=== PATIENT | female | born 1950 | race Caucasian/White ===

== ENCOUNTER 2020-02-27 19:36 | Inpatient (IN) | payer MEDICARE, MEDICAID ==
[2020-02-27] MEDS ORDERED: Ondansetron 4 MG/2 ML SDV IVPUSH ONE (19:51)
--- NOTE | 2020-02-27 19:58 | EDM.PDOC ---
ED HPI GENERAL MEDICAL PROBLEM - General Chief Complaint: General Stated Complaint: WEAKNESS; N/V Time Seen by Provider: 02/27/20 20:15 Source of Information: Reports: Patient History Limitations: Reports: No Limitations - History of Present Illness INITIAL COMMENTS - FREE TEXT/NARRATIVE: Patient presented to the ED because of persistent nausea and vomiting for 2 days. She denies any abdominal pain,diarrhea,fever or chills. She is also concerned about her BP being elevated and took her daughter's losartan/HCTZ which aggravated her dehydration and weakness. She also c/o weakness and dizziness and fell on her buttock just prior to coming to the ED. She didn't sustain any injury after the fall except for a bruising on the left elbow. - Related Data Allergies Allergy/AdvReac Type Severity Reaction Status Date / Time iodine Allergy Hives Verified 06/10/14 15:30 Home Meds: Home Meds NK [No Known Home Meds] 06/10/14 [History] Past Medical History - Past Health History Medical/Surgical History: Denies Medical/Surgical History ED ROS GENERAL - Review of Systems Review Of Systems: See Below Constitutional: Reports: No Symptoms HEENT: Reports: No Symptoms Respiratory: Reports: No Symptoms Cardiovascular: Reports: No Symptoms Endocrine: Reports: No Symptoms GI/Abdominal: Reports: No Symptoms : Reports: No Symptoms Musculoskeletal: Reports: No Symptoms Skin: Reports: Bruising Neurological: Reports: Weakness Psychiatric: Reports: No Symptoms ED EXAM, GENERAL - Physical Exam Exam: See Below Exam Limited By: No Limitations General Appearance: Alert, No Apparent Distress Eye Exam: Bilateral Eye: PERRL Ears: Normal External Exam, Normal Canal Nose: Normal Inspection, Normal Mucosa, No Blood Throat/Mouth: Normal Inspection, Normal Lips, Normal Teeth, Normal Gums Head: Atraumatic, Normocephalic Neck: Normal Inspection, Supple, Non-Tender, Full Range of Motion Respiratory/Chest: No Respiratory Distress, Lungs Clear, Normal Breath Sounds Cardiovascular: Normal Peripheral Pulses, Regular Rate, Rhythm, No Edema, No Gallop GI/Abdominal: Normal Bowel Sounds, Soft, Non-Tender, No Organomegaly Back Exam: Normal Inspection, Full Range of Motion Extremities: Normal Inspection, Normal Range of Motion, Non-Tender Course - Vital Signs Text/Narrative:: Labs/EKG/CXR was discussed with patient and verbalized full understanding NS 1 L bolus Zofran 4 mg IV x1 Last Recorded V/S: Last Vital Signs Temp 36.3 C 02/27/20 20:09 Pulse 93 02/27/20 20:09 Resp 22 H 02/27/20 20:09 BP 174/83 H 02/27/20 20:09 Pulse Ox 97 02/27/20 20:09 - Orders/Labs/Meds Orders: Active Orders 24 hr Category Date Time Status Patient Status [ADT] Routine ADT 02/27/20 21:05 Ordered Cardiac Monitoring [RC] CONTINUOUS Care 02/27/20 21:09 Ordered EKG Documentation Completion [RC] ASDIRECTED Care 02/27/20 19:49 Active Height and Weight [RC] DAILY Care 02/27/20 21:04 Ordered Intake and Output [RC] QSHIFT Care 02/27/20 21:08 Ordered Oxygen Therapy [RC] PRN Care 02/27/20 21:05 Ordered Up With Assistance [RC] ASDIRECTED Care 02/27/20 21:04 Ordered VTE/DVT Education [RC] Per Unit Routine Care 02/27/20 21:05 Ordered Vital Signs [RC] Q4H Care 02/27/20 21:05 Ordered Regular Diet [DIET] Diet 02/28/20 Breakfast Ordered Chest 1V Frontal [CR] Stat Exams 02/27/20 20:05 Taken BASIC METABOLIC PANEL,BMP [CHEM] Routine Lab 02/27/20 21:04 Ordered CBC WITH AUTO DIFF [HEME] AM Lab 02/28/20 05:11 Ordered UA W/MICROSCOPIC [URIN] Stat Lab 02/27/20 19:47 Ordered Potassium Chloride [Klor-Con M20] Med 02/27/20 21:15 Ordered 40 meq PO Q2H Sodium Chloride 0.9% [Normal Saline] 1,000 ml Med 02/27/20 20:00 Active IV ASDIRECTED Sodium Chloride 0.9% [Saline Flush] Med 02/27/20 19:47 Active 10 ml FLUSH ASDIRECTED PRN Sodium Chloride 0.9% with KCl 20 mEq @ 125 mL/Hr (1000 Med 02/27/20 21:15 Ordered mL) NS + KCl 20mEq/L [Normal Saline with 20 mEq KCl] 1,000 ml IV ASDIRECTED Saline Lock Insert [OM.PC] Routine Oth 02/27/20 19:47 Ordered Resuscitation Status Routine Resus Stat 02/27/20 21:04 Ordered EKG 12 Lead [EK] Routine Ther 02/27/20 19:47 Ordered Medication Orders Sodium Chloride (Normal Saline) 1,000 mls @ 999 mls/hr IV ASDIRECTED MARY Last Admin: 02/27/20 20:07 Dose: 999 mls/hr Potassium Chloride/Sodium Chloride (Normal Saline With 20 Meq Kcl) 1,000 mls @ 125 mls/hr IV ASDIRECTED MARY Potassium Chloride (Klor-Con M20) 40 meq PO Q2H MARY Sodium Chloride (Saline Flush) 10 ml FLUSH ASDIRECTED PRN PRN Reason: Keep Vein Open Labs: Laboratory Tests 02/27/20 02/27/20 02/27/20 Range/Units 19:54 19:54 19:54 WBC 7.2 (4.5-12.0) X10-3/uL RBC 3.81 (3.23-5.20) x10(6)uL Hgb 11.6 (11.5-15.5) g/dL Hct 34.7 (30.0-51.3) % MCV 91.0 (80-96) fL MCH 30.4 (27.7-33.6) pg MCHC 33.4 (32.2-35.4) g/dL RDW 11.7 (11.5-15.5) % Plt Count 293 (125-369) X10(3)uL MPV 7.4 (7.4-10.4) fL Neut % (Auto) 80.1 (46-82) % Lymph % (Auto) 9.0 L (13-37) % [place] % (Auto) 7.4 (4-12) % Eos % (Auto) 0 L (1.0-5.0) % Baso % (Auto) 3 H (0-2) % Neut # (Auto) 5.9 (1.6-8.3) # Lymph # (Auto) 0.6 (0.6-5.0) # [place] # (Auto) 0.5 (0.0-1.3) # Eos # (Auto) 0.0 (0.0-0.8) # Baso # (Auto) 0.2 (0.0-0.2) # Sodium 103 L* (135-145) mmol/L Potassium 3.1 L (3.5-5.3) mmol/L Chloride 68 L* (100-110) mmol/L Carbon Dioxide 19 L (21-32) mmol/L BUN 9 (7-18) mg/dL Creatinine 0.9 (0.55-1.02) mg/dL Est Cr Clr Drug Dosing TNP Estimated GFR (MDRD) > 60 (>60) BUN/Creatinine Ratio 10.0 (9-20) Glucose 154 H (80-116) mg/dL Calcium 9.0 (8.6-10.2) mg/dL Total Bilirubin 0.9 (0.1-1.3) mg/dL AST 50 H (5-25) IU/L ALT 32 (12-36) U/L Alkaline Phosphatase 87 (56-112) IU/L Troponin I 18.1 (4.0-60.3) pg/mL Total Protein 7.9 (6.0-8.0) g/dL Albumin 3.7 (3.2-4.6) g/dL Globulin 4.2 g/dL Albumin/Globulin Ratio 0.9 Meds: Medications Generic Name Dose Route Start Last Admin Trade Name Freq PRN Reason Stop Dose Admin Sodium Chloride 1,000 mls @ 999 mls/hr 02/27/20 20:00 02/27/20 20:07 Normal Saline IV 999 mls/hr ASDIRECTED MARY Administration Potassium Chloride/Sodium Chloride 1,000 mls @ 125 mls/hr 02/27/20 21:15 Normal Saline With 20 Meq Kcl IV ASDIRECTED MARY Potassium Chloride 40 meq 02/27/20 21:15 Klor-Con M20 PO Q2H MARY Sodium Chloride 10 ml 02/27/20 19:47 Saline Flush FLUSH ASDIRECTED PRN Keep Vein Open Discontinued Medications Generic Name Dose Route Start Last Admin Trade Name Freq PRN Reason Stop Dose Admin Ondansetron HCl 4 mg 02/27/20 19:51 02/27/20 20:07 Zofran IVPUSH 02/27/20 19:52 4 mg ONETIME ONE Administration Departure - Departure Time of Disposition: 21:25 Disposition: Home, Self-Care 01 Condition: Good Clinical Impression: Dehydration, Hyponatremia, Hypokalemia, Weakness - Discharge Information Referrals: Deejay Thornton MD [Primary Care Provider] - Forms: ED Department Discharge Sepsis Event Note - Focused Exam Vital Signs: Vital Signs Temp Pulse Resp BP Pulse Ox 02/27/20 20:09 36.3 C 93 22 H 174/83 H 97 Date Exam was Performed: 02/27/20 Time Exam was Performed: 21:14 - My Orders Last 24 Hours: My Active Orders 02/27/20 19:47 UA W/MICROSCOPIC [URIN] Stat Sodium Chloride 0.9% [Saline Flush] 10 ml FLUSH ASDIRECTED PRN Saline Lock Insert [OM.PC] Routine EKG 12 Lead [EK] Routine 02/27/20 19:49 EKG Documentation Completion [RC] ASDIRECTED 02/27/20 20:00 Sodium Chloride 0.9% [Normal Saline] 1,000 ml IV ASDIRECTED 02/27/20 20:05 Chest 1V Frontal [CR] Stat 02/27/20 21:04 Height and Weight [RC] DAILY Up With Assistance [RC] ASDIRECTED BASIC METABOLIC PANEL,BMP [CHEM] Routine Resuscitation Status Routine 02/27/20 21:05 Patient Status [ADT] Routine Oxygen Therapy [RC] PRN VTE/DVT Education [RC] Per Unit Routine Vital Signs [RC] Q4H 02/27/20 21:08 Intake and Output [RC] QSHIFT 02/27/20 21:09 Cardiac Monitoring [RC] CONTINUOUS 02/27/20 21:15 Potassium Chloride [Klor-Con M20] 40 meq PO Q2H Sodium Chloride 0.9% with KCl 20 mEq @ 125 mL/Hr (1000 mL) NS + KCl 20mEq/L [ Normal Saline with 20 mEq KCl] 1,000 ml IV ASDIRECTED 02/28/20 05:11 CBC WITH AUTO DIFF [HEME] AM 02/28/20 Breakfast Regular Diet [DIET] - Assessment/Plan Last 24 Hours: My Active Orders 02/27/20 19:47 UA W/MICROSCOPIC [URIN] Stat Sodium Chloride 0.9% [Saline Flush] 10 ml FLUSH ASDIRECTED PRN Saline Lock Insert [OM.PC] Routine EKG 12 Lead [EK] Routine 02/27/20 19:49 EKG Documentation Completion [RC] ASDIRECTED 02/27/20 20:00 Sodium Chloride 0.9% [Normal Saline] 1,000 ml IV ASDIRECTED 02/27/20 20:05 Chest 1V Frontal [CR] Stat 02/27/20 21:04 Height and Weight [RC] DAILY Up With Assistance [RC] ASDIRECTED BASIC METABOLIC PANEL,BMP [CHEM] Routine Resuscitation Status Routine 02/27/20 21:05 Patient Status [ADT] Routine Oxygen Therapy [RC] PRN VTE/DVT Education [RC] Per Unit Routine Vital Signs [RC] Q4H 02/27/20 21:08 Intake and Output [RC] QSHIFT 02/27/20 21:09 Cardiac Monitoring [RC] CONTINUOUS 02/27/20 21:15 Potassium Chloride [Klor-Con M20] 40 meq PO Q2H Sodium Chloride 0.9% with KCl 20 mEq @ 125 mL/Hr (1000 mL) NS + KCl 20mEq/L [ Normal Saline with 20 mEq KCl] 1,000 ml IV ASDIRECTED 02/28/20 05:11 CBC WITH AUTO DIFF [HEME] AM 02/28/20 Breakfast Regular Diet [DIET]
[2020-02-27] MEDS ORDERED: Sodium Chloride 0.9% 1,000 ML IV SCH (20:00)
[2020-02-27] MEDS ORDERED: Potassium Chloride 20 MEQ Tab.ER PO ONE (21:30)
[2020-02-27] MEDS: NS + KCl 20mEq/L 1,000 ML IV SCH (21:42)
[2020-02-27] MEDS: Potassium Chloride 20 MEQ Tab.ER PO SCH (22:08)
[2020-02-27] MEDS ORDERED: Pneumococcal Polyvalent-23 Vaccine 0.5 ML SDV IM ONE (23:02)
[2020-02-28] MEDS: Potassium Chloride 20 MEQ Tab.ER PO SCH ×3 (00:10→04:17)
[2020-02-28] MEDS ORDERED: Ondansetron 4 MG/2 ML SDV ONE (00:31)
[2020-02-28] MEDS: Ondansetron 4 MG/2 ML SDV IVPUSH PRN ×2 (00:33→08:43)
[2020-02-28] MEDS ORDERED: Acetaminophen/HYDROcodone 325-5 MG Tab PO PRN (02:55)
[2020-02-28] MEDS ORDERED: Potassium Chloride 20 MEQ Tab.ER ONE (04:05)
[2020-02-28] MEDS: Acetaminophen/HYDROcodone 325-5 MG Tab PO PRN (04:18)
[2020-02-28] MEDS: NS + KCl 20mEq/L 1,000 ML IV SCH ×3 (05:48→22:29)
--- NOTE | 2020-02-28 09:20 | PCM.HP.2 ---
H&P History of Present Illness - General Date of Service: 02/28/20 Admit Problem/Dx: Admission Diagnosis/Problem Admission Diagnosis/Problem Nausea and vomiting Source of Information: Patient History Limitations: Reports: No Limitations - History of Present Illness Initial Comments - Free Text/Narative: Tenisha presented to the ED last night because of persistent nausea and vomiting for 2 days.Had a similar episode a few days ago. She denies any abdominal pain, diarrhea,fever or chills. She is also concerned about her BP being elevated and took her daughter's losartan/HCTZ which aggravated her dehydration and weakness. She also c/o weakness and dizziness and fell on her buttock just prior to coming to the ED.Her past record includes untreated HTN,diagnosed in 2014. She has had glaucoma,but no treatment due to transportation problems.She is therefore unable to see even shadows,for last month. 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 Cardiovascular History: Reports: Hypertension, SOB on Exertion Respiratory History: Reports: Other (See Below) Other Respiratory History: Patient believes she had Covid Spring 2019. Musculoskeletal History: Reports: Arthritis Neurological History: Reports: Vertigo Endocrine/Metabolic History: Reports: Obesity/BMI 30+ - Infectious Disease History Infectious Disease History: Reports: Measles, Mumps, Rubella Social & Family History - Family History Family Medical History: Noncontributory - Tobacco Use Smoking Status *Q: Former Smoker Years of Tobacco use: 50 Used Tobacco, but Quit: No Month/Year Tobacco Last Used: 11/2019 - Caffeine Use Caffeine Use: Reports: Tea - Recreational Drug Use Recreational Drug Use: Yes H&P Review of Systems - Review of Systems: Review Of Systems: Comprehensive ROS is negative, except as noted in HPI. Exam - Exam Exam: See Below - Vital Signs Vital Signs: Last Vital Signs Temp 96.8 F L 02/27/20 21:15 Pulse 87 02/28/20 04:10 Resp 18 06/06/20 04:10 BP 125/81 02/28/20 04:10 Pulse Ox 99 02/28/20 04:10 Weight: 91.852 kg - Exam General: Alert, Oriented, 4 HEENT: PERRLA, Hearing Intact, Mucosa Moist & [place], Nares Patent, Normal Nasal Septum, Posterior Pharynx Clear, Conjunctiva Clear, EOMI, EACs Clear, TMs Clear Neck: Supple, Trachea Midline, 2 Lungs: Clear to Auscultation, Normal Respiratory Effort Cardiovascular: Regular Rate, Regular Rhythm GI/Abdominal Exam: Normal Bowel Sounds, Soft, Non-Tender, No Organomegaly, No Distention, No Abnormal Bruit, No Mass, Pelvis Stable (Female) Exam: Deferred Rectal (Female) Exam: Deferred Back Exam: Normal Inspection, Full Range of Motion, NT Extremities: Normal Inspection, Normal Range of Motion, Non-Tender, No Pedal Edema, Normal Capillary Refill Skin: Warm, Dry, Intact Neurological: Cranial Nerves Intact, Reflexes Equal Bilateral Neuro Extensive - Mental Status: Alert, Oriented x3, Normal Mood/Affect, Normal Cognition Neuro Extensive - Motor, Sensory, Reflexes: CN II-XII Intact, Normal Gait, Normal Reflexes Psychiatric: Alert, Normal Affect, Normal Mood - Patient Data Lab Results Last 24 hrs: Laboratory Results - last 24 hr 02/27/20 02/27/20 02/27/20 Range/Units 19:41 19:54 19:54 WBC 7.2 (4.5-12.0) X10-3/uL RBC 3.81 (3.23-5.20) x10(6)uL Hgb 11.6 (11.5-15.5) g/dL Hct 34.7 (30.0-51.3) % MCV 91.0 (80-96) fL MCH 30.4 (27.7-33.6) pg MCHC 33.4 (32.2-35.4) g/dL RDW 11.7 (11.5-15.5) % Plt Count 293 (125-369) X10(3)uL MPV 7.4 (7.4-10.4) fL Neut % (Auto) 80.1 (46-82) % Lymph % (Auto) 9.0 L (13-37) % [place] % (Auto) 7.4 (4-12) % Eos % (Auto) 0 L (1.0-5.0) % Baso % (Auto) 3 H (0-2) % Neut # (Auto) 5.9 (1.6-8.3) # Lymph # (Auto) 0.6 (0.6-5.0) # [place] # (Auto) 0.5 (0.0-1.3) # Eos # (Auto) 0.0 (0.0-0.8) # Baso # (Auto) 0.2 (0.0-0.2) # Sodium 103 L* (135-145) mmol/L Potassium 3.1 L (3.5-5.3) mmol/L Chloride 68 L* (100-110) mmol/L Carbon Dioxide 19 L (21-32) mmol/L BUN 9 (7-18) mg/dL Creatinine 0.9 (0.55-1.02) mg/dL Est Cr Clr Drug Dosing TNP Estimated GFR (MDRD) > 60 (>60) BUN/Creatinine Ratio 10.0 (9-20) Glucose 154 H (80-116) mg/dL POC Glucose 138 H (80-116) mg/dL Calcium 9.0 (8.6-10.2) mg/dL Magnesium (1.8-2.5) mg/dL Total Bilirubin 0.9 (0.1-1.3) mg/dL AST 50 H (5-25) IU/L ALT 32 (12-36) U/L Alkaline Phosphatase 87 (56-112) IU/L Troponin I (4.0-60.3) pg/mL Total Protein 7.9 (6.0-8.0) g/dL Albumin 3.7 (3.2-4.6) g/dL Globulin 4.2 g/dL Albumin/Globulin Ratio 0.9 Urine Color (YELLOW) Urine Appearance (CLEAR) Urine pH (5.0-6.5) Ur Specific [place] (1.010-1.025) Urine Protein (NEGATIVE) mg/dL Urine Glucose (UA) (NORMAL) mg/dL Urine Ketones (NEGATIVE) mg/dL Urine Occult Blood (NEGATIVE) Urine Nitrite (NEGATIVE) Urine Bilirubin (NEGATIVE) Urine Urobilinogen (NEGATIVE) mg/dL Ur Leukocyte Esterase (NEGATIVE) Urine RBC (0-5) Urine WBC (0-5) Ur Squamous Epith Cells (NS,R,O) Urine Bacteria (NS) SARS Virus RNA (PCR) (NEGATIVE) 02/27/20 02/27/20 02/27/20 Range/Units 19:54 21:16 22:00 WBC (4.5-12.0) X10-3/uL RBC (3.23-5.20) x10(6)uL Hgb (11.5-15.5) g/dL Hct (30.0-51.3) % MCV (80-96) fL MCH (27.7-33.6) pg MCHC (32.2-35.4) g/dL RDW (11.5-15.5) % Plt Count (125-369) X10(3)uL MPV (7.4-10.4) fL Neut % (Auto) (46-82) % Lymph % (Auto) (13-37) % [place] % (Auto) (4-12) % Eos % (Auto) (1.0-5.0) % Baso % (Auto) (0-2) % Neut # (Auto) (1.6-8.3) # Lymph # (Auto) (0.6-5.0) # [place] # (Auto) (0.0-1.3) # Eos # (Auto) (0.0-0.8) # Baso # (Auto) (0.0-0.2) # Sodium (135-145) mmol/L Potassium (3.5-5.3) mmol/L Chloride (100-110) mmol/L Carbon Dioxide (21-32) mmol/L BUN (7-18) mg/dL Creatinine (0.55-1.02) mg/dL Est Cr Clr Drug Dosing Estimated GFR (MDRD) (>60) BUN/Creatinine Ratio (9-20) Glucose (80-116) mg/dL POC Glucose (80-116) mg/dL Calcium (8.6-10.2) mg/dL Magnesium (1.8-2.5) mg/dL Total Bilirubin (0.1-1.3) mg/dL AST (5-25) IU/L ALT (12-36) U/L Alkaline Phosphatase (56-112) IU/L Troponin I 18.1 (4.0-60.3) pg/mL Total Protein (6.0-8.0) g/dL Albumin (3.2-4.6) g/dL Globulin g/dL Albumin/Globulin Ratio Urine Color Yellow (YELLOW) Urine Appearance Clear (CLEAR) Urine pH 6.0 (5.0-6.5) Ur Specific [place] 1.010 (1.010-1.025) Urine Protein Negative (NEGATIVE) mg/dL Urine Glucose (UA) Normal (NORMAL) mg/dL Urine Ketones 50 H (NEGATIVE) mg/dL Urine Occult Blood Trace (NEGATIVE) Urine Nitrite Negative (NEGATIVE) Urine Bilirubin Negative (NEGATIVE) Urine Urobilinogen Normal (NEGATIVE) mg/dL Ur Leukocyte Esterase Negative (NEGATIVE) Urine RBC Not seen (0-5) Urine WBC 0-5 (0-5) Ur Squamous Epith Cells Few H (NS,R,O) Urine Bacteria Few H (NS) SARS Virus RNA (PCR) Negative (NEGATIVE) 02/28/20 02/28/20 Range/Units 05:55 05:55 WBC 6.3 (4.5-12.0) X10-3/uL RBC 3.29 (3.23-5.20) x10(6)uL Hgb 10.1 L (11.5-15.5) g/dL Hct 30.0 (30.0-51.3) % MCV 91.3 (80-96) fL MCH 30.7 (27.7-33.6) pg MCHC 33.6 (32.2-35.4) g/dL RDW 11.7 (11.5-15.5) % Plt Count 233 (125-369) X10(3)uL MPV 7.3 L (7.4-10.4) fL Neut % (Auto) 70.9 (46-82) % Lymph % (Auto) 13.7 (13-37) % [place] % (Auto) 14.9 H (4-12) % Eos % (Auto) 0 L (1.0-5.0) % Baso % (Auto) 0 (0-2) % Neut # (Auto) 4.5 (1.6-8.3) # Lymph # (Auto) 0.9 (0.6-5.0) # [place] # (Auto) 0.9 (0.0-1.3) # Eos # (Auto) 0.0 (0.0-0.8) # Baso # (Auto) 0.0 (0.0-0.2) # Sodium 110 L* (135-145) mmol/L Potassium 4.3 D (3.5-5.3) mmol/L Chloride 79 L* D (100-110) mmol/L Carbon Dioxide 22 (21-32) mmol/L BUN 7 (7-18) mg/dL Creatinine 0.9 (0.55-1.02) mg/dL Est Cr Clr Drug Dosing 41.78 Estimated GFR (MDRD) > 60 (>60) BUN/Creatinine Ratio 7.8 L (9-20) Glucose 85 (80-116) mg/dL POC Glucose (80-116) mg/dL Calcium 8.1 L (8.6-10.2) mg/dL Magnesium 0.9 L* (1.8-2.5) mg/dL Total Bilirubin (0.1-1.3) mg/dL AST (5-25) IU/L ALT (12-36) U/L Alkaline Phosphatase (56-112) IU/L Troponin I (4.0-60.3) pg/mL Total Protein (6.0-8.0) g/dL Albumin (3.2-4.6) g/dL Globulin g/dL Albumin/Globulin Ratio Urine Color (YELLOW) Urine Appearance (CLEAR) Urine pH (5.0-6.5) Ur Specific [place] (1.010-1.025) Urine Protein (NEGATIVE) mg/dL Urine Glucose (UA) (NORMAL) mg/dL Urine Ketones (NEGATIVE) mg/dL Urine Occult Blood (NEGATIVE) Urine Nitrite (NEGATIVE) Urine Bilirubin (NEGATIVE) Urine Urobilinogen (NEGATIVE) mg/dL Ur Leukocyte Esterase (NEGATIVE) Urine RBC (0-5) Urine WBC (0-5) Ur Squamous Epith Cells (NS,R,O) Urine Bacteria (NS) SARS Virus RNA (PCR) (NEGATIVE) Result Diagrams: 02/28/20 05:55 02/28/20 05:55 Sepsis Event Note - Evaluation Sepsis Screening Result: No Definite Risk - Focused Exam Vital Signs: Vital Signs Temp Pulse Resp BP Pulse Ox 02/28/20 04:10 87 18 125/81 99 02/28/20 00:40 97 18 142/80 H 96 02/27/20 21:15 96.8 F L 98 20 171/94 H 98 Date Exam was Performed: 02/28/20 Time Exam was Performed: 09:14 - Problem List (1) Hyponatremia syndrome SNOMED Code(s): 2375277 ICD Code: E87.1 - HYPO-OSMOLALITY AND HYPONATREMIA Status: Acute Current Visit: Yes (2) HTN (hypertension) SNOMED Code(s): 56240625 ICD Code: I10 - ESSENTIAL (PRIMARY) HYPERTENSION Status: Acute Current Visit: Yes Qualifiers: Hypertension type: essential hypertension Qualified Code(s): I10 - Essential (primary) hypertension (3) Vomiting SNOMED Code(s): 867834639 ICD Code: R11.10 - VOMITING, UNSPECIFIED Status: Acute Current Visit: Yes (4) Weakness SNOMED Code(s): 82982414 ICD Code: R53.1 - WEAKNESS Status: Acute Current Visit: Yes (5) Hypomagnesemia SNOMED Code(s): 431769901 ICD Code: E83.42 - HYPOMAGNESEMIA Status: Acute Current Visit: Yes Problem List Initiated/Reviewed/Updated: Yes Orders Last 24hrs: Active Orders 24 hr Category Date Time Status Patient Status [ADT] Routine ADT 02/27/20 21:05 Active Cardiac Monitoring [RC] 00,08,16 Care 02/27/20 21:09 Active Height and Weight [RC] 06 Care 02/27/20 21:04 Active Intake and Output [RC] 06,14,22 Care 02/27/20 21:08 Active Oxygen Therapy [RC] .PRN Care 02/27/20 21:05 Active Up With Assistance [RC] .PRN Care 02/27/20 21:04 Active Vital Signs [RC] 00,04,08,12,16,20 Care 02/27/20 21:05 Active Fluid Restriction [DIET] Diet 02/28/20 Breakfast Active Regular Diet [DIET] Diet 02/28/20 Breakfast Active Chest 1V Frontal [CR] Stat Exams 02/27/20 20:05 Taken COMPREHENSIVE METABOLIC PN,CMP [CHEM] AM Lab 02/29/20 05:11 Ordered COVID-19 SARS COV-2 AB, IGG Routine Lab 02/28/20 09:12 Ordered COVID-19 SARS COV-2 AB, IGM Routine Lab 02/28/20 09:12 Ordered MAGNESIUM [CHEM] AM Lab 02/29/20 05:11 Ordered OSMOLALITY Stat Lab 02/28/20 09:12 Ordered OSMOLALITY, URINE Stat Lab 02/28/20 09:12 Ordered SODIUM,URINE RANDOM [URCHEM] Routine Lab 02/28/20 09:12 Ordered Acetaminophen/HYDROcodone [[place] 325-5 MG] Med 02/28/20 02:55 Active 1 tab PO Q4H PRN Acetaminophen/HYDROcodone [[place] 325-5 MG] Med 02/28/20 02:55 Active 2 tab PO Q4H PRN Magnesium Oxide Med 02/28/20 09:15 Ordered 400 mg PO BID NS + KCl 20mEq/L [Normal Saline with 20 mEq KCl] 1,000 Med 02/27/20 21:15 Active ml IV ASDIRECTED Ondansetron [Zofran] Med 02/28/20 00:20 Active 4 mg IVPUSH Q4H PRN Sodium Chloride 0.9% [Normal Saline] 1,000 ml Med 02/27/20 20:00 Active IV ASDIRECTED Sodium Chloride 0.9% [Saline Flush] Med 02/27/20 19:47 Active 10 ml FLUSH ASDIRECTED PRN Saline Lock Insert [OM.PC] Routine Oth 02/27/20 19:47 Ordered Resuscitation Status Routine Resus Stat 02/27/20 21:04 Ordered EKG 12 Lead [EK] Routine Ther 02/27/20 19:47 Ordered Medication Orders Hydrocodone Bitart/Acetaminophen ([place] 325-5 Mg) 1 tab PO Q4H PRN PRN Reason: Pain Hydrocodone Bitart/Acetaminophen ([place] 325-5 Mg) 2 tab PO Q4H PRN PRN Reason: Pain Last Admin: 02/28/20 04:18 Dose: 2 tab Sodium Chloride (Normal Saline) 1,000 mls @ 999 mls/hr IV ASDIRECTED MARY Last Admin: 02/27/20 20:07 Dose: 999 mls/hr Potassium Chloride/Sodium Chloride (Normal Saline With 20 Meq Kcl) 1,000 mls @ 125 mls/hr IV ASDIRECTED MARY Last Admin: 02/28/20 05:48 Dose: 125 mls/hr Admin: 02/27/20 21:42 Dose: 125 mls/hr Magnesium Oxide (Magnesium Oxide) 400 mg PO BID MARY Ondansetron HCl (Zofran) 4 mg IVPUSH Q4H PRN PRN Reason: Nausea Last Admin: 02/28/20 08:43 Dose: 4 mg Admin: 02/28/20 00:33 Dose: 4 mg Sodium Chloride (Saline Flush) 10 ml FLUSH ASDIRECTED PRN PRN Reason: Keep Vein Open Assessment/Plan Comment:: Sodium on admission was 103, up to 110 this morning. I'll continue with isotonic saline replacement, and restrict fluids to 1000 MLS per day. Use when necessary Zofran for vomiting.Replace magnesium. Recommend urine sodium, serum osmolarity and urine osmolarity. She also wants to be tested for covid antibodies. Admit to inpatient since she needs further fluid replacement, probably consider rehabilitation as well,after.
[2020-02-28] MEDS: Magnesium Oxide 400 MG Tab PO SCH ×2 (10:29→20:18)
[2020-02-28] MEDS: Sodium Chloride 0.9% 10 ML Syringe FLUSH PRN (22:39)
[2020-02-29] MEDS: Acetaminophen/HYDROcodone 325-5 MG Tab PO PRN ×3 (04:58→13:13)
[2020-02-29] MEDS: NS + KCl 20mEq/L 1,000 ML IV SCH (06:25)
[2020-02-29] MEDS: Magnesium Oxide 400 MG Tab PO SCH ×2 (08:04→20:53)
--- NOTE | 2020-02-29 09:16 | PCM.PN ---
- General Info Date of Service: 02/29/20 Subjective Update: She reports marked improvement of her symptoms-weakness,nausea Functional Status: Reports: Pain Controlled - Review of Systems General: Reports: No Symptoms HEENT: Reports: No Symptoms Pulmonary: Reports: No Symptoms Cardiovascular: Reports: No Symptoms Gastrointestinal: Reports: No Symptoms - Patient Data Vitals - Most Recent: Last Vital Signs Temp 97.4 F 02/29/20 03:20 Pulse 69 02/29/20 03:20 Resp 16 02/29/20 03:20 BP 105/66 02/29/20 03:20 Pulse Ox 100 02/29/20 03:20 Weight - Most Recent: 92.805 kg I&O - Last 24 Hours: Intake & Output 02/28/20 02/29/20 02/29/20 22:59 06:59 14:59 Intake Total 1498 1038 Output Total 800 0 Balance 698 1038 Lab Results Last 24 Hours: Laboratory Results - last 24 hr 02/28/20 02/28/20 02/29/20 Range/Units 05:55 10:50 06:15 Sodium 121 L D (135-145) mmol/L Potassium 5.1 (3.5-5.3) mmol/L Chloride 92 L D (100-110) mmol/L Carbon Dioxide 22 (21-32) mmol/L BUN 8 (7-18) mg/dL Creatinine 1.0 (0.55-1.02) mg/dL Est Cr Clr Drug Dosing 37.60 mL/min Estimated GFR (MDRD) 55 L (>60) BUN/Creatinine Ratio 8.0 L (9-20) Glucose 109 (80-116) mg/dL Calcium 8.5 L (8.6-10.2) mg/dL Magnesium 1.2 L* (1.8-2.5) mg/dL Total Bilirubin 0.6 (0.1-1.3) mg/dL AST 42 H D (5-25) IU/L ALT 32 (12-36) U/L Alkaline Phosphatase 69 (56-112) IU/L Total Protein 6.6 (6.0-8.0) g/dL Albumin 3.2 (3.2-4.6) g/dL Globulin 3.4 g/dL Albumin/Globulin Ratio 0.9 TSH, Ultra Sensitive 0.80 (0.36-3.74) IU/mL Ur Random Sodium 21 mmol/L Med Orders - Current: Current Medications Hydrocodone Bitart/Acetaminophen (Coats 325-5 Mg) 1 tab PO Q4H PRN PRN Reason: Pain Last Admin: 02/28/20 11:57 Dose: 1 tab Hydrocodone Bitart/Acetaminophen ([place]ats 325-5 Mg) 2 tab PO Q4H PRN PRN Reason: Pain Last Admin: 02/29/20 09:01 Dose: 2 tab Sodium Chloride (Normal Saline) 1,000 mls @ 100 mls/hr IV ASDIRECTED [facility] Magnesium Oxide (Magnesium Oxide) 400 mg PO BID MARY Last Admin: 02/29/20 08:04 Dose: 400 mg Ondansetron HCl (Zofran) 4 mg IVPUSH Q4H PRN PRN Reason: Nausea Last Admin: 02/28/20 08:43 Dose: 4 mg Sodium Chloride (Saline Flush) 10 ml FLUSH ASDIRECTED PRN PRN Reason: Keep Vein Open Last Admin: 02/28/20 22:39 Dose: 10 ml Discontinued Medications Sodium Chloride (Normal Saline) 1,000 mls @ 999 mls/hr IV ASDIRECTED [facility] Last Admin: 02/27/20 20:07 Dose: 999 mls/hr Potassium Chloride/Sodium Chloride (Normal Saline With 20 Meq Kcl) 1,000 mls @ 125 mls/hr IV ASDIRECTED [facility] Last Admin: 02/29/20 06:25 Dose: 125 mls/hr Ondansetron HCl (Zofran) 4 mg IVPUSH ONETIME ONE Stop: 02/27/20 19:52 Last Admin: 02/27/20 20:07 Dose: 4 mg Ondansetron HCl (Zofran) Confirm Administered Dose 4 mg .ROUTE .STK-MED ONE Stop: 02/28/20 00:32 Last Admin: 02/28/20 01:01 Dose: Not Given Pneumococcal Polyvalent Vaccine (Pneumovax 23) 0.5 ml IM .ONCE ONE Stop: 02/27/20 23:03 Last Admin: 02/28/20 00:12 Dose: Not Given Potassium Chloride (Klor-Con M20) 40 meq PO Q2H [facility] Stop: 02/28/20 01:16 Last Admin: 02/28/20 04:17 Dose: 40 meq Potassium Chloride (Klor-Con M20) Confirm Administered Dose 40 meq .ROUTE .STK- MED ONE Stop: 02/28/20 04:06 Last Admin: 02/28/20 04:17 Dose: Not Given - Exam General: Alert, Oriented Neck: Supple Lungs: Clear to Auscultation Cardiovascular: Regular Rate GI/Abdominal Exam: Normal Bowel Sounds (Female) Exam: Deferred Back Exam: Normal Inspection Extremities: Normal Inspection Sepsis Event Note - Evaluation Sepsis Screening Result: No Definite Risk - Focused Exam Vital Signs: Vital Signs Temp Pulse Resp BP Pulse Ox 02/29/20 03:20 97.4 F 69 16 105/66 100 Date Exam was Performed: 02/29/20 Time Exam was Performed: 09:14 - Problem List & Annotations (1) Hyponatremia syndrome SNOMED Code(s): 7699965 Code(s): E87.1 - HYPO-OSMOLALITY AND HYPONATREMIA Status: Acute Current Visit: Yes (2) HTN (hypertension) SNOMED Code(s): 47671932 Code(s): I10 - ESSENTIAL (PRIMARY) HYPERTENSION Status: Acute Current Visit: Yes Qualifiers: Hypertension type: essential hypertension Qualified Code(s): I10 - Essential (primary) hypertension (3) Vomiting SNOMED Code(s): 453679963 Code(s): R11.10 - VOMITING, UNSPECIFIED Status: Acute Current Visit: Yes (4) Weakness SNOMED Code(s): 19642534 Code(s): R53.1 - WEAKNESS Status: Acute Current Visit: Yes (5) Hypomagnesemia SNOMED Code(s): 029722033 Code(s): E83.42 - HYPOMAGNESEMIA Status: Acute Current Visit: Yes (6) Lacunar infarction SNOMED Code(s): 353706796 Code(s): I63.81 - OTHER CEREB INFRC DUE TO OCCLS OR STENOSIS OF SMALL ARTERY Status: Acute Current Visit: Yes - Problem List Review Problem List Initiated/Reviewed/Updated: Yes - My Orders Last 24 Hours: My Active Orders 02/28/20 09:15 Magnesium Oxide 400 mg PO BID 02/28/20 09:20 COVID-19 SARS COV-2 AB, IGG Routine COVID-19 SARS COV-2 AB, IGM Routine OSMOLALITY Stat 02/28/20 09:21 Head wo Cont [CT] Routine 02/28/20 10:50 OSMOLALITY, URINE Stat 02/29/20 08:55 Brain wo Cont [MR] Routine CV Carotid Duplex Comp [US] Routine 02/29/20 09:00 Sodium Chloride 0.9% [Normal Saline] 1,000 ml IV ASDIRECTED 02/29/20 Lunch Fluid Restriction [DIET] 03/01/20 05:11 BASIC METABOLIC PANEL,BMP [CHEM] AM CBC WITH AUTO DIFF [HEME] AM LIPID PANEL [CHEM] AM MAGNESIUM [CHEM] AM - Plan Plan:: Continue sodium /fluid restriction.Replace Magnesium. Start Aspirin. Obtain MRI, carotid US. Decrease IVF. Stop Tele.
[2020-02-29] MEDS: Aspirin 81 MG Tab.Chew PO SCH (09:39)
[2020-02-29] MEDS: Sodium Chloride 0.9% 1,000 ML IV SCH (14:29)
[2020-03-01] MEDS: Sodium Chloride 0.9% 1,000 ML IV SCH (00:23)
--- NOTE | 2020-03-01 08:49 | PCM.PN ---
- General Info Date of Service: 03/01/20 Subjective Update: She reports marked improvement of her symptoms-weakness,nausea - Review of Systems HEENT: Reports: No Symptoms Pulmonary: Reports: No Symptoms Cardiovascular: Reports: No Symptoms Gastrointestinal: Reports: No Symptoms - Patient Data Vitals - Most Recent: Last Vital Signs Temp 97.4 F 03/01/20 03:25 Pulse 95 03/01/20 03:25 Resp 16 03/01/20 03:25 BP 149/88 H 03/01/20 03:25 Pulse Ox 98 03/01/20 03:25 Weight - Most Recent: 95.436 kg I&O - Last 24 Hours: Intake & Output 02/29/20 03/01/20 03/01/20 22:59 06:59 14:59 Intake Total 1499 0 779 Output Total 0 0 Balance 1499 0 779 Lab Results Last 24 Hours: Laboratory Results - last 24 hr 03/01/20 03/01/20 Range/Units 06:30 06:30 WBC 6.3 (4.5-12.0) X10-3/uL RBC 3.26 (3.23-5.20) x10(6)uL Hgb 10.0 L (11.5-15.5) g/dL Hct 30.1 (30.0-51.3) % MCV 92.3 (80-96) fL MCH 30.5 (27.7-33.6) pg MCHC 33.1 (32.2-35.4) g/dL RDW 12.3 (11.5-15.5) % Plt Count 247 (125-369) X10(3)uL MPV 7.7 (7.4-10.4) fL Neut % (Auto) 74.9 (46-82) % Lymph % (Auto) 14.8 (13-37) % [place] % (Auto) 7.5 (4-12) % Eos % (Auto) 2 (1.0-5.0) % Baso % (Auto) 1 (0-2) % Neut # (Auto) 4.8 (1.6-8.3) # Lymph # (Auto) 0.9 (0.6-5.0) # [place] # (Auto) 0.5 (0.0-1.3) # Eos # (Auto) 0.1 (0.0-0.8) # Baso # (Auto) 0.0 (0.0-0.2) # Sodium 128 L (135-145) mmol/L Potassium 5.3 (3.5-5.3) mmol/L Chloride 99 L D (100-110) mmol/L Carbon Dioxide 22 (21-32) mmol/L BUN 13 (7-18) mg/dL Creatinine 1.0 (0.55-1.02) mg/dL Est Cr Clr Drug Dosing 37.60 mL/min Estimated GFR (MDRD) 55 L (>60) BUN/Creatinine Ratio 13.0 (9-20) Glucose 110 (80-116) mg/dL Calcium 8.8 (8.6-10.2) mg/dL Magnesium 1.1 L* (1.8-2.5) mg/dL Triglycerides 54 (15-150) mg/dL Cholesterol 158 (50-200) mg/dL LDL Cholesterol Direct 78 (60-130) mg/dL HDL Cholesterol 57 (40-75) mg/dL Cholesterol/HDL Ratio 2.8 (0-5) Med Orders - Current: Current Medications Hydrocodone Bitart/Acetaminophen (Goff 325-5 Mg) 1 tab PO Q4H PRN PRN Reason: Pain Last Admin: 02/28/20 11:57 Dose: 1 tab Hydrocodone Bitart/Acetaminophen (Goff 325-5 Mg) 2 tab PO Q4H PRN PRN Reason: Pain Last Admin: 02/29/20 13:13 Dose: 2 tab Aspirin (Aspirin) 81 mg PO DAILY [facility] Last Admin: 02/29/20 09:39 Dose: 81 mg Magnesium Sulfate 4 gm/ (Dextrose/Water) 258 mls @ 100 mls/hr IV TID [facility] Magnesium Oxide (Magnesium Oxide) 400 mg PO BID [facility] Last Admin: 02/29/20 20:53 Dose: 400 mg Ondansetron HCl (Zofran) 4 mg IVPUSH Q4H PRN PRN Reason: Nausea Last Admin: 02/28/20 08:43 Dose: 4 mg Sodium Chloride (Saline Flush) 10 ml FLUSH ASDIRECTED PRN PRN Reason: Keep Vein Open Last Admin: 02/28/20 22:39 Dose: 10 ml Discontinued Medications Sodium Chloride (Normal Saline) 1,000 mls @ 999 mls/hr IV ASDIRECTED [facility] Last Admin: 02/27/20 20:07 Dose: 999 mls/hr Potassium Chloride/Sodium Chloride (Normal Saline With 20 Meq Kcl) 1,000 mls @ 125 mls/hr IV ASDIRECTED [facility] Last Admin: 02/29/20 06:25 Dose: 125 mls/hr Sodium Chloride (Normal Saline) 1,000 mls @ 100 mls/hr IV ASDIRECTED [facility] Last Admin: 03/01/20 00:23 Dose: 100 mls/hr Ondansetron HCl (Zofran) 4 mg IVPUSH ONETIME ONE Stop: 02/27/20 19:52 Last Admin: 02/27/20 20:07 Dose: 4 mg Ondansetron HCl (Zofran) Confirm Administered Dose 4 mg .ROUTE .STK-MED ONE Stop: 02/28/20 00:32 Last Admin: 02/28/20 01:01 Dose: Not Given Pneumococcal Polyvalent Vaccine (Pneumovax 23) 0.5 ml IM .ONCE ONE Stop: 02/27/20 23:03 Last Admin: 02/28/20 00:12 Dose: Not Given Potassium Chloride (Klor-Con M20) 40 meq PO Q2H [facility] Stop: 02/28/20 01:16 Last Admin: 02/28/20 04:17 Dose: 40 meq Potassium Chloride (Klor-Con M20) Confirm Administered Dose 40 meq .ROUTE .STK- MED ONE Stop: 02/28/20 04:06 Last Admin: 02/28/20 04:17 Dose: Not Given - Exam General: Alert Neck: Supple Lungs: Crackles Cardiovascular: Regular Rate Extremities: Pedal Edema Sepsis Event Note - Evaluation Sepsis Screening Result: No Definite Risk - Focused Exam Vital Signs: Vital Signs Temp Pulse Resp BP Pulse Ox 03/01/20 03:25 97.4 F 95 16 149/88 H 98 03/01/20 00:00 97.5 F 86 16 126/72 97 Date Exam was Performed: 03/01/20 Time Exam was Performed: 08:48 - Problem List & Annotations (1) Hyponatremia syndrome SNOMED Code(s): 3122965 Code(s): E87.1 - HYPO-OSMOLALITY AND HYPONATREMIA Status: Acute Current Visit: Yes (2) HTN (hypertension) SNOMED Code(s): 45469775 Code(s): I10 - ESSENTIAL (PRIMARY) HYPERTENSION Status: Acute Current Visit: Yes Qualifiers: Hypertension type: essential hypertension Qualified Code(s): I10 - Essential (primary) hypertension (3) Vomiting SNOMED Code(s): 544562394 Code(s): R11.10 - VOMITING, UNSPECIFIED Status: Acute Current Visit: Yes (4) Weakness SNOMED Code(s): 77627104 Code(s): R53.1 - WEAKNESS Status: Acute Current Visit: Yes (5) Hypomagnesemia SNOMED Code(s): 946411147 Code(s): E83.42 - HYPOMAGNESEMIA Status: Acute Current Visit: Yes (6) Lacunar infarction SNOMED Code(s): 109813162 Code(s): I63.81 - OTHER CEREB INFRC DUE TO OCCLS OR STENOSIS OF SMALL ARTERY Status: Acute Current Visit: Yes - Problem List Review Problem List Initiated/Reviewed/Updated: Yes - My Orders Last 24 Hours: My Active Orders 02/29/20 09:16 Cardiac Monitoring Discontinue [RC] Click to Edit 02/29/20 09:30 Aspirin 81 mg PO DAILY 02/29/20 Lunch Fluid Restriction [DIET] 03/01/20 08:00 Brain wo Cont [MR] Routine 03/01/20 08:47 OT Evaluation and Treatment [CONS] Routine PT Evaluation and Treatment [CONS] Routine 03/01/20 09:00 Magnesium Sulfate [Magnesium Sulfate 50%] 4 gm Dextrose 5% in Water 250 ml IV TID 03/02/20 05:11 BASIC METABOLIC PANEL,BMP [CHEM] AM MAGNESIUM [CHEM] AM - Plan Plan:: Continue sodium /fluid restriction.Replace Magnesium,IV x3 doses. Obtain MRI, carotid US. Stop IVF. Consult PT/OT.
[2020-03-01] MEDS: Acetaminophen/HYDROcodone 325-5 MG Tab PO PRN (08:58)
[2020-03-01] MEDS: Aspirin 81 MG Tab.Chew PO SCH (09:01)
[2020-03-01] MEDS: Magnesium Oxide 400 MG Tab PO SCH (09:01)
[2020-03-01] MEDS ORDERED: Magnesium Sulfate/Water 50 ML IV SCH (09:15)
--- NOTE | 2020-03-01 11:29 | CR ---
INDICATION: Dyspnea. CHEST, 1 VIEW: An AP upright portable view of the chest, 02/27/20, was compared with 06/10/14 and revealed the heart to be near the upper limits of normal in size. The aorta is somewhat tortuous with minimal calcification in the arch. Overlying EKG leads are noted. An active infiltrate or effusion was not identified. Evidence of exogenous obesity is noted. No definite evidence of CHF is seen. IMPRESSION: No acute process. MTDD
[2020-03-01] MEDS: Sodium Chloride 0.9% 10 ML Syringe FLUSH PRN (13:13)
[2020-03-02] MEDS: Acetaminophen 325 MG Tab PO PRN (03:05)
--- NOTE | 2020-03-02 08:42 | PCM.PN ---
- General Info Date of Service: 03/02/20 Subjective Update: She reports marked improvement of her symptoms-weakness,nausea Functional Status: Reports: Pain Controlled - Review of Systems General: Reports: No Symptoms HEENT: Reports: No Symptoms Pulmonary: Reports: No Symptoms Cardiovascular: Reports: No Symptoms Gastrointestinal: Reports: No Symptoms - Patient Data Vitals - Most Recent: Last Vital Signs Temp 97.8 F 03/02/20 04:10 Pulse 89 03/02/20 04:10 Resp 16 03/02/20 04:10 BP 123/60 03/02/20 04:10 Pulse Ox 96 03/02/20 04:10 Weight - Most Recent: 95.527 kg I&O - Last 24 Hours: Intake & Output 03/01/20 03/02/20 03/02/20 22:59 06:59 14:59 Intake Total 50 75 Output Total 0 Balance 50 75 Lab Results Last 24 Hours: Laboratory Results - last 24 hr 03/01/20 03/02/20 Range/Units 17:30 06:10 Sodium 127 L (135-145) mmol/L Potassium 5.1 (3.5-5.3) mmol/L Chloride 98 L (100-110) mmol/L Carbon Dioxide 21 (21-32) mmol/L BUN 12 (7-18) mg/dL Creatinine 0.9 (0.55-1.02) mg/dL Est Cr Clr Drug Dosing 41.78 mL/min Estimated GFR (MDRD) > 60 (>60) BUN/Creatinine Ratio 13.3 (9-20) Glucose 110 (80-116) mg/dL Calcium 9.2 (8.6-10.2) mg/dL Magnesium 2.2 2.0 (1.8-2.5) mg/dL Med Orders - Current: Current Medications Acetaminophen (Tylenol) 650 mg PO Q4H PRN PRN Reason: PAIN Last Admin: 03/02/20 03:05 Dose: 650 mg Aspirin (Aspirin) 81 mg PO DAILY [facility] Last Admin: 03/01/20 09:01 Dose: 81 mg Magnesium Oxide (Magnesium Oxide) 400 mg PO BID [facility] Last Admin: 03/01/20 09:01 Dose: 400 mg Ondansetron HCl (Zofran) 4 mg IVPUSH Q4H PRN PRN Reason: Nausea Last Admin: 02/28/20 08:43 Dose: 4 mg Pneumococcal Polyvalent Vaccine (Pneumovax 23) 0.5 ml IM .ONCE ONE Stop: 03/02/20 10:16 Sodium Chloride (Saline Flush) 10 ml FLUSH ASDIRECTED PRN PRN Reason: Keep Vein Open Last Admin: 03/01/20 13:13 Dose: 10 ml Discontinued Medications Hydrocodone Bitart/Acetaminophen (Paulina 325-5 Mg) 1 tab PO Q4H PRN PRN Reason: Pain Last Admin: 02/28/20 11:57 Dose: 1 tab Hydrocodone Bitart/Acetaminophen (Paulina 325-5 Mg) 2 tab PO Q4H PRN PRN Reason: Pain Last Admin: 03/01/20 08:58 Dose: 2 tab Sodium Chloride (Normal Saline) 1,000 mls @ 999 mls/hr IV ASDIRECTED [facility] Last Admin: 02/27/20 20:07 Dose: 999 mls/hr Potassium Chloride/Sodium Chloride (Normal Saline With 20 Meq Kcl) 1,000 mls @ 125 mls/hr IV ASDIRECTED [facility] Last Admin: 02/29/20 06:25 Dose: 125 mls/hr Sodium Chloride (Normal Saline) 1,000 mls @ 100 mls/hr IV ASDIRECTED [facility] Last Admin: 03/01/20 00:23 Dose: 100 mls/hr Magnesium Sulfate (Magnesium Sulfate In Water Premix) 50 mls @ 12.5 mls/hr IV Q8H [facility] Stop: 03/01/20 14:00 Last Admin: 03/01/20 09:13 Dose: 12.5 mls/hr Ondansetron HCl (Zofran) 4 mg IVPUSH ONETIME ONE Stop: 02/27/20 19:52 Last Admin: 02/27/20 20:07 Dose: 4 mg Ondansetron HCl (Zofran) Confirm Administered Dose 4 mg .ROUTE .STK-MED ONE Stop: 02/28/20 00:32 Last Admin: 02/28/20 01:01 Dose: Not Given Pneumococcal Polyvalent Vaccine (Pneumovax 23) 0.5 ml IM .ONCE ONE Stop: 02/27/20 23:03 Last Admin: 02/28/20 00:12 Dose: Not Given Potassium Chloride (Klor-Con M20) 40 meq PO Q2H [facility] Stop: 06/06/20 01:16 Last Admin: 02/28/20 04:17 Dose: 40 meq Potassium Chloride (Klor-Con M20) Confirm Administered Dose 40 meq .ROUTE .STK- MED ONE Stop: 02/28/20 04:06 Last Admin: 02/28/20 04:17 Dose: Not Given - Exam General: Alert HEENT: Pupils Equal Neck: Supple Lungs: Clear to Auscultation Cardiovascular: Regular Rate Back Exam: Normal Inspection Extremities: Normal Inspection Sepsis Event Note - Evaluation Sepsis Screening Result: No Definite Risk - Focused Exam Vital Signs: Vital Signs Temp Pulse Resp BP Pulse Ox 03/02/20 04:10 97.8 F 89 16 123/60 96 03/01/20 23:30 97.5 F 84 16 132/77 100 Date Exam was Performed: 03/02/20 Time Exam was Performed: 08:40 - Problem List & Annotations (1) Hyponatremia syndrome SNOMED Code(s): 5206880 Code(s): E87.1 - HYPO-OSMOLALITY AND HYPONATREMIA Status: Acute Current Visit: Yes (2) HTN (hypertension) SNOMED Code(s): 82066364 Code(s): I10 - ESSENTIAL (PRIMARY) HYPERTENSION Status: Acute Current Visit: Yes Qualifiers: Hypertension type: essential hypertension Qualified Code(s): I10 - Essential (primary) hypertension (3) Vomiting SNOMED Code(s): 693673119 Code(s): R11.10 - VOMITING, UNSPECIFIED Status: Acute Current Visit: Yes (4) Weakness SNOMED Code(s): 69685007 Code(s): R53.1 - WEAKNESS Status: Acute Current Visit: Yes (5) Hypomagnesemia SNOMED Code(s): 228453550 Code(s): E83.42 - HYPOMAGNESEMIA Status: Acute Current Visit: Yes (6) Lacunar infarction SNOMED Code(s): 394953274 Code(s): I63.81 - OTHER CEREB INFRC DUE TO OCCLS OR STENOSIS OF SMALL ARTERY Status: Acute Current Visit: Yes - Problem List Review Problem List Initiated/Reviewed/Updated: Yes - My Orders Last 24 Hours: My Active Orders 03/01/20 08:00 Brain wo Cont [MR] Routine 03/01/20 08:47 OT Evaluation and Treatment [CONS] Routine PT Evaluation and Treatment [CONS] Routine 03/01/20 10:00 Acetaminophen [Tylenol] 650 mg PO Q4H PRN 03/02/20 10:15 Pneumococcal Polyvalent-23 Vac [Pneumovax 23] 0.5 ml IM .ONCE ONE 03/03/20 05:11 BASIC METABOLIC PANEL,BMP [CHEM] AM MAGNESIUM [CHEM] AM - Plan Plan:: Continue sodium /fluid restriction.MRI negative for stroke,.Cancel US carotids. Continue Oral magnesium. Repeat labs ion AM. I appreciate input from [employer],PT/OT. DC home tomorrow,with HH
[2020-03-02] MEDS: Aspirin 81 MG Tab.Chew PO SCH (08:52)
[2020-03-02] MEDS: Magnesium Oxide 400 MG Tab PO SCH ×2 (08:52→20:35)
[2020-03-02] MEDS ORDERED: Pneumococcal Polyvalent-23 Vaccine 0.5 ML SDV IM ONE (10:15)
[2020-03-03] MEDS: Acetaminophen 325 MG Tab PO PRN (01:49)
[2020-03-03] MEDS: Magnesium Oxide 400 MG Tab PO SCH (09:06)
[2020-03-03] MEDS: Aspirin 81 MG Tab.Chew PO SCH (09:06)
--- NOTE | 2020-03-03 15:07 | DISCH ---
DISCHARGE DATE: 03/03/2020 REASON FOR ADMISSION: 1. Hyponatremia, severe. 2. Hypomagnesemia. 3. Uncontrolled hypertension. 4. Blindness or loss of vision. 5. Generalized weakness. DISCHARGE DIAGNOSES: 1. Hyponatremia, severe. 2. Hypomagnesemia. 3. Uncontrolled hypertension. 4. Blindness or loss of vision. 5. Generalized weakness. BRIEF HISTORY AND HOSPITAL COURSE: This is a 69-year-old female admitted for weakness, alteration of mental status, and was found to have a very low sodium of 103. She had been vomiting for 2 to 3 days and was feeling very weak. She had also been taking her daughter's lisinopril-hydrochlorothiazide for blood pressure. On admission, her blood pressure was extremely high 171/94. She was admitted for treatment and given isotonic normal saline with 1500 fluid restriction. Her magnesium was replaced initially orally and then 1 dose of magnesium sulfate. Physical and Occupational Therapy were consulted, and she is deemed ready to return home today. Sodium is up to 129, magnesium is 1.6. Blood pressure has been stable without any treatment. Her weakness has improved and vomiting resolved. She will be discharged home on aspirin 81 mg a day and magnesium oxide 400 mg t.i.d. We did do a CT of the head that suggested a lacunar stroke, but MRI was negative. Because of her blindness and need for ambulation help and activities of daily living, she is going to go home with her daughter, but home health will visit her. FOLLOWUP: In the office in 1 week. I spent more than 35 minutes in the discharge of the patient. /[id number] DELMA/[place]
[2020-03-03 15:11] LABS: SARS COV-2 IGM AB Negative (Negative)
[2020-03-03 16:11] LABS: ABBOTT SARS COV-2 IGG AB Negative (Negative)
== END 2020-03-03 13:15 | disposition home health service (06) | DRG 641 ==
LOC: FB.ED 19:36 → FB.MS 21:14 → OBSVTOIN 02-28 09:24
PROVIDERS: ADMIT Emergency Medicine; ATTEND Family Medicine
DX: E87.1 Hypo-osmolality and hyponatremia (principal); E86.0 Dehydration; E87.6 Hypokalemia; R53.1 Weakness; Z68.41 Body mass index [BMI] 40.0-44.9, adult; E83.42 Hypomagnesemia; I10 Essential (primary) hypertension; H54.7 Unspecified visual loss; M19.90 Unspecified osteoarthritis, unspecified site; E66.9 Obesity, unspecified; Z88.8 Allergy status to other drugs, medicaments and biological substances; Z91.09 Other allergy status, other than to drugs and biological substances; Z87.891 Personal history of nicotine dependence
CPT/HCPCS: 36415 ×2; 71045; 80048; 80053; 81001; 82962; 83735; 83930; 84443; 84484; 85025 ×2; 86769 ×2; 93005; 96361; 96374; 99285; A9270 ×4; J2405 ×3; J3480 ×2; J7030; U0002; 70450; 70551; 80061; 83935; 84300; 90732; 96365; 96366; 96375; 96376; 97161-GP; 97165-GO; 97535-GO; G0009; G0378; J3475

== ENCOUNTER 2022-02-18 09:55 | Emergency (ER) | payer MEDICARE, MEDICAID ==
[2022-02-18] MEDS ORDERED: Sodium Chloride 0.9% 10 ML Syringe FLUSH PRN (10:27)
[2022-02-18] MEDS ORDERED: NS + KCl 20mEq/L 1,000 ML IV SCH (11:30)
== END 2022-02-18 13:25 | disposition home or self-care (01) ==
LOC: FB.ED 09:55
DX: I10 Essential (primary) hypertension (principal); E86.0 Dehydration; E66.9 Obesity, unspecified; Z68.38 Body mass index [BMI] 38.0-38.9, adult; Z91.041 Radiographic dye allergy status; Z91.018 Allergy to other foods; Z79.899 Other long term (current) drug therapy
CPT/HCPCS: 36415; 80048; 81001; 84484; 85027; 85379; 93005; 96360; 99285-25; J3480

== ENCOUNTER 2022-05-25 16:09 | Inpatient (IN) | payer MEDICARE, MEDICAID ==
[2022-05-25] MEDS ORDERED: Acetaminophen/HYDROcodone 325-5 MG Tab PO ONE (16:22)
[2022-05-25] MEDS ORDERED: Ondansetron 4 MG Tab.DIS PO ONE (16:24)
[2022-05-25 16:56] LABS: ESTIMATED GFR 53 mL/min (>60)
[2022-05-25] MEDS ORDERED: Magnesium Oxide 400 MG Tab PO ONE (17:24)
[2022-05-25] MEDS ORDERED: Potassium Chloride 20 MEQ Tab.ER PO ONE (17:24)
[2022-05-25] MEDS ORDERED: Magnesium Sulfate/Water 2 GM in Premix Bag 1 BAG IV ONE (17:24)
[2022-05-25] MEDS: Sodium Chloride 0.9% 1,000 ML IV SCH (17:47)
[2022-05-25] MEDS: traZODone 50 MG Tab PO SCH (20:32)
[2022-05-25] MEDS: Acetaminophen 500 MG Tab PO PRN (23:06)
[2022-05-26] MEDS: Sodium Chloride 0.9% 1,000 ML IV SCH ×4 (01:04→18:06)
[2022-05-26] MEDS ORDERED: hydrOXYzine HCl 25 MG Tab PO ONE (01:30)
[2022-05-26] MEDS: Acetaminophen 500 MG Tab PO PRN ×3 (05:07→21:16)
[2022-05-26 06:46] LABS: ESTIMATED GFR 53 mL/min (>60)
[2022-05-26] MEDS: Losartan 100 MG Tab PO SCH (08:07)
[2022-05-26] MEDS: Enoxaparin 40 MG/0.4 ML Syringe SUBCUT SCH (09:53)
[2022-05-26] MEDS: Pantoprazole 40 MG Tab.CR PO SCH (09:53)
[2022-05-26] MEDS: traZODone 50 MG Tab PO SCH (21:11)
[2022-05-27] MEDS: Acetaminophen 500 MG Tab PO PRN ×3 (03:22→19:47)
[2022-05-27] MEDS: Sodium Chloride 0.9% 1,000 ML IV SCH (03:45)
[2022-05-27] MEDS: Pantoprazole 40 MG Tab.CR PO SCH (06:11)
[2022-05-27 06:28] LABS: ESTIMATED GFR 60 mL/min (>60)
[2022-05-27] MEDS: Enoxaparin 40 MG/0.4 ML Syringe SUBCUT SCH (08:24)
[2022-05-27] MEDS: Losartan 100 MG Tab PO SCH (08:24)
[2022-05-27] MEDS: traZODone 50 MG Tab PO SCH (21:32)
[2022-05-28] MEDS: Acetaminophen 500 MG Tab PO PRN ×2 (01:43→09:07)
[2022-05-28] MEDS: Pantoprazole 40 MG Tab.CR PO SCH (05:54)
[2022-05-28] MEDS: Losartan 100 MG Tab PO SCH (09:08)
[2022-05-28] MEDS: Enoxaparin 40 MG/0.4 ML Syringe SUBCUT SCH (09:09)
== END 2022-05-28 10:25 | disposition home or self-care (01) | DRG 641 ==
LOC: FB.ED 16:09 → FB.MS 17:37
PROVIDERS: ADMIT Emergency Medicine; ATTEND Student in an Organized Health Care Education/Training Program
DX: E87.1 Hypo-osmolality and hyponatremia (principal); S82.832A Other fracture of upper and lower end of left fibula, initial encounter for closed fracture; E83.42 Hypomagnesemia; G47.00 Insomnia, unspecified; S82.891A Other fracture of right lower leg, initial encounter for closed fracture; F17.200 Nicotine dependence, unspecified, uncomplicated; I10 Essential (primary) hypertension; H54.7 Unspecified visual loss; M19.90 Unspecified osteoarthritis, unspecified site; N18.31 Chronic kidney disease, stage 3a; Z86.16 Personal history of COVID-19; I12.9 Hypertensive chronic kidney disease with stage 1 through stage 4 chronic kidney disease, or unspecified chronic kidney disease; S92.534A Nondisplaced fracture of distal phalanx of right lesser toe(s), initial encounter for closed fracture; Z88.8 Allergy status to other drugs, medicaments and biological substances; Z91.013 Allergy to seafood; Z79.899 Other long term (current) drug therapy; W19.XXXA Unspecified fall, initial encounter
CPT/HCPCS: 36415; 73610; 73630; 80048; 81001; 83735; 84484; 85027; 99285; A9270 ×3; Q0162; 70551; 80053; 84295; 84588; 85025; 96365; J1650; J3475; J7030

== ENCOUNTER 2022-06-01 03:25 | Emergency (ER) | payer MEDICARE, MEDICAID ==
[2022-06-01] MEDS ORDERED: Acetaminophen/HYDROcodone 325-5 MG Tab PO STA (04:00)
== END 2022-06-01 04:40 | disposition home or self-care (01) ==
LOC: FB.ED 03:25
DX: S82.831A Other fracture of upper and lower end of right fibula, initial encounter for closed fracture (principal); F17.210 Nicotine dependence, cigarettes, uncomplicated; E66.9 Obesity, unspecified; Z68.30 Body mass index [BMI] 30.0-30.9, adult; Z91.041 Radiographic dye allergy status; Z91.013 Allergy to seafood; Z79.899 Other long term (current) drug therapy
CPT/HCPCS: 99284; A9270

== ENCOUNTER 2022-07-02 14:34 | Emergency (ER) | payer MEDICARE, MEDICAID ==
[2022-07-02 16:01] LABS: ESTIMATED GFR 60 mL/min (>60)
== END 2022-07-02 17:10 | disposition home or self-care (01) ==
LOC: FB.ED 14:34
DX: R53.81 Other malaise (principal)
CPT/HCPCS: 36415; 80048; 84484; 85025; 93005; 99283

== ENCOUNTER 2024-09-16 04:55 | Emergency (ER) | payer MEDICAID, MEDICARE ==
[2024-09-16 05:21] LABS: HEMATOCRIT 32.1 % (34.2-48.2); HEMOGLOBIN 10.9 g/dL (11.4-15.5); MEAN CORPUSCULAR HEMOGLOBIN 33.8 pg (23.9-33.9); MEAN CORPUSCULAR HGB CONC 34.1 g/dL (31.9-34.8); MEAN CORPUSCULAR VOLUME 99.1 fL (76.7-100.5); MEAN PLATELET VOLUME 7.9 fL (7.1-12.4); PLATELET COUNT,PLT 204 x10(3)uL (151-488); RED BLOOD CELL COUNT 3.24 x10(6)uL (3.60-5.20); RED CELL DISTRIBUTION WIDTH 12.5 % (12.3-16.5); WHITE BLOOD CELL COUNT,WBC 10.6 x10-3/uL (3.0-10.3)
[2024-09-16 05:28] LABS: BLOOD UREA NITROGEN,BUN 12 mg/dL (7-18); CALCIUM 8.9 mg/dL (8.6-10.2); CARBON DIOXIDE,CO2 23 mmol/L (21-32); CHLORIDE,CL 93 mmol/L (100-110); CREATININE 1.2 mg/dL (0.55-1.02); ESTIMATED GFR 47 mL/min (>60); GLUCOSE RANDOM 192 mg/dL (80-116); POTASSIUM,K 4.1 mmol/L (3.5-5.3); SODIUM,NA 128 mmol/L (135-145)
[2024-09-16] MEDS ORDERED: Naloxone 0.4 MG/ML SDV IVPUSH PRN (05:37)
[2024-09-16] MEDS ORDERED: Sodium Chloride 0.9% 10 ML Syringe FLUSH PRN (05:37)
[2024-09-16 05:39] LABS: A/G RATIO 0.7; ALANINE AMINOTRANSFERASE,ALT 73 U/L (12-36); ALKALINE PHOSPHATASE 177 IU/L (56-112); BILIRUBIN TOTAL 0.7 mg/dL (0.1-1.3); PROTEIN TOTAL,TP 7.2 g/dL (6.0-8.0)
[2024-09-16] MEDS: Sodium Chloride 0.9% 500 ML IV ONE ×2 (05:46→07:18)
[2024-09-16] MEDS: Ondansetron 4 MG/2 ML SDV IVPUSH ONE ×2 (05:49→08:29)
[2024-09-16] MEDS: Morphine 2 MG/ML SYRINGE IVPUSH ONE (05:49)
[2024-09-16 05:52] LABS: ASPARTATE AMNIOTRANSFERASE,AST 229 IU/L (5-25)
[2024-09-16 05:53] LABS: BAND PERCENT MAN 2 % (0-6); LYMPHOCYTES PERCENT MAN 13 % (13-37); MONOCYTES PERCENT MAN 5 % (4-12); SEG NEUTROPHILS PERCENT MAN 80 % (46-82)
[2024-09-16 06:03] LABS: TROPONIN I 5.7 pg/mL (4.0-60.3)
[2024-09-16 06:04] LABS: C-REACTIVE PROTEIN < 0.50 mg/dL (<0.50)
[2024-09-16 06:35] LABS: BILIRUBIN,URINE NEGATIVE (NEGATIVE); GLUCOSE,URINE NORMAL (NORMAL); KETONES,URINE NEGATIVE (NEGATIVE); LEUKOCYTE ESTERASE,URINE MODERATE (NEGATIVE); NITRITE,URINE NEGATIVE (NEGATIVE); OCCULT BLOOD,URINE NEGATIVE (NEGATIVE); PROTEIN,URINE NEGATIVE (NEGATIVE); UROBILINOGEN,URINE NORMAL (NEGATIVE)
[2024-09-16 06:39] LABS: APPEARANCE,URINE SLIGHTLY CLOUDY (CLEAR); BACTERIA,URINE FEW (NS); COLOR,URINE YELLOW (YELLOW); RBC,URINE 0-5 (0-5); SQUAMOUS EPITHELIAL CELLS,UR OCCASIONAL (NS,R,O)
[2024-09-16] MEDS: Piperacillin/Tazobactam 3.375 GM in Sodium Chloride 0.9% 50 ML IV ONE (07:21)
[2024-09-16] MEDS: Sodium Chloride 0.9% 1,000 ML IV SCH (08:14)
[2024-09-16] MEDS: Morphine 4 MG/ML VIAL IVPUSH ONE (08:37)
[2024-09-16] MEDS: Sodium Chloride 0.9% 1,000 ML IV ONE (12:44)
== END 2024-09-16 12:57 ==
LOC: FB.ED 04:55
DX: K81.9 Cholecystitis, unspecified (principal); K85.90 Acute pancreatitis without necrosis or infection, unspecified; N39.0 Urinary tract infection, site not specified; E86.0 Dehydration; I10 Essential (primary) hypertension; E66.9 Obesity, unspecified; F17.210 Nicotine dependence, cigarettes, uncomplicated; Z91.013 Allergy to seafood; Z91.048 Other nonmedicinal substance allergy status; Z68.29 Body mass index [BMI] 29.0-29.9, adult
CPT/HCPCS: 36415; 74176; 80053; 81001; 83605; 83690; 83735; 84484; 85025; 85379; 86140; 87086; 87088; 87186; 93005; 93010; 96361; 96365; 96375; 96376; 99284; 99285; J2270; J2405; J2543; J3490; J7030; J7040

== ENCOUNTER 2025-02-10 13:19 | Emergency (ER) | payer MEDICAID, MEDICARE ==
[2025-02-10] MEDS: Sodium Chloride 0.9% 500 ML IV ONE (13:48)
[2025-02-10 13:49] LABS: BASOPHILS PERCENT AUTO 0.5 % (0.2-1.5); EOSINOPHILS ABSOLUTE AUTO 0.1 x10-3/uL (0.0-0.8); EOSINOPHILS PERCENT AUTO 1.1 % (0.6-8.1); HEMOGLOBIN 9.5 g/dL (11.4-15.5); LYMPHOCYTES ABSOLUTE AUTO 0.8 x10-3/uL (1.0-4.4); LYMPHOCYTES PERCENT AUTO 13.6 % (18.4-52.1); MEAN CORPUSCULAR VOLUME 94.3 fL (76.7-100.5); MEAN PLATELET VOLUME 7.6 fL (7.1-12.4); MONOCYTES ABSOLUTE AUTO 0.4 x10-3/uL (0.3-1.0); MONOCYTES PERCENT AUTO 7.3 % (4.4-15.7); NEUTROPHILS ABSOLUTE AUTO 4.6 x10-3/uL (1.5-6.3); NEUTROPHILS PERCENT AUTO 77.5 % (30.8-76.2); PLATELET COUNT,PLT 251 x10(3)uL (151-488); RED BLOOD CELL COUNT 2.97 x10(6)uL (3.60-5.20); RED CELL DISTRIBUTION WIDTH 14.1 % (12.3-16.5)
[2025-02-10] MEDS: Diltiazem 25 MG/5 ML SDV IVPUSH ONE (13:52)
[2025-02-10] MEDS: Ondansetron 4 MG/2 ML SDV IVPUSH ONE (13:54)
[2025-02-10 14:00] LABS: A/G RATIO 0.6; ALANINE AMINOTRANSFERASE,ALT 18 U/L (12-36); ALBUMIN 2.8 g/dL (3.2-4.6); ALKALINE PHOSPHATASE 124 IU/L (56-112); ASPARTATE AMNIOTRANSFERASE,AST 29 IU/L (5-25); BILIRUBIN TOTAL 0.3 mg/dL (0.1-1.3); BLOOD UREA NITROGEN,BUN 8 mg/dL (7-18); BUN/CREATININE RATIO 6.7 (9-20); CALCIUM 8.4 mg/dL (8.6-10.2); CARBON DIOXIDE,CO2 18 mmol/L (21-32); CREATININE 1.2 mg/dL (0.55-1.02); ESTIMATED GFR 47 mL/min (>60); GLUCOSE RANDOM 190 mg/dL (80-116); POTASSIUM,K 3.8 mmol/L (3.5-5.3); PROTEIN TOTAL,TP 7.4 g/dL (6.0-8.0)
[2025-02-10 14:14] LABS: CHLORIDE,CL 89 mmol/L (100-110); SODIUM,NA 119 mmol/L (135-145)
[2025-02-10 14:15] LABS: MAGNESIUM 1.2 mg/dL (1.8-2.5)
[2025-02-10] MEDS: Sodium Chloride 0.9% 1,000 ML IV SCH (14:18)
[2025-02-10 14:43] LABS: BILIRUBIN,URINE NEGATIVE (NEGATIVE); GLUCOSE,URINE NORMAL (NORMAL); KETONES,URINE NEGATIVE (NEGATIVE); LEUKOCYTE ESTERASE,URINE NEGATIVE (NEGATIVE); NITRITE,URINE NEGATIVE (NEGATIVE); OCCULT BLOOD,URINE NEGATIVE (NEGATIVE); PROTEIN,URINE NEGATIVE (NEGATIVE); UROBILINOGEN,URINE NORMAL (NEGATIVE)
[2025-02-10 15:03] LABS: APPEARANCE,URINE CLEAR (CLEAR); COLOR,URINE YELLOW (YELLOW)
[2025-02-10] MEDS: Magnesium Sulfate 2 GM/50 mL 2 GM in Premix Bag 1 BAG IV ONE (15:17)
[2025-02-10] MEDS: Diltiazem 125 MG in Sodium Chloride 0.9% 100 ML IV SCH (15:21)
[2025-02-10] MEDS: cefTRIAXone 2 GM Vial IVPUSH ONE (15:38)
[2025-02-10] MEDS: Sodium Chloride 0.9% 10 ML Syringe FLUSH PRN (15:40)
== END 2025-02-10 17:42 ==
LOC: FB.ED 13:19
DX: I11.0 Hypertensive heart disease with heart failure (principal); I50.9 Heart failure, unspecified; J18.9 Pneumonia, unspecified organism; I48.91 Unspecified atrial fibrillation; E87.1 Hypo-osmolality and hyponatremia; E83.42 Hypomagnesemia; E66.9 Obesity, unspecified; Z90.49 Acquired absence of other specified parts of digestive tract; F17.200 Nicotine dependence, unspecified, uncomplicated; Z79.899 Other long term (current) drug therapy; Z91.013 Allergy to seafood; Z91.048 Other nonmedicinal substance allergy status
CPT/HCPCS: 36415; 71045; 80053; 81003; 83605; 83690; 83735; 83880; 84484; 85025; 86140; 87040; 87426-QW; 93005; 93010; 96361; 96365; 96367; 96375; 99285; 99285-25; J0696; J2405; J3475; J3490; J7030; J7040

== ENCOUNTER 2025-02-24 15:16 | Emergency (ER) | payer MEDICAID, MEDICARE ==
[2025-02-24 16:01] LABS: BASOPHILS PERCENT AUTO 0.2 % (0.2-1.5); EOSINOPHILS PERCENT AUTO 0.3 % (0.6-8.1); HEMATOCRIT 26.9 % (34.2-48.2); HEMOGLOBIN 9.1 g/dL (11.4-15.5); LYMPHOCYTES ABSOLUTE AUTO 0.7 x10-3/uL (1.0-4.4); LYMPHOCYTES PERCENT AUTO 5.5 % (18.4-52.1); MEAN CORPUSCULAR HEMOGLOBIN 30.5 pg (23.9-33.9); MEAN CORPUSCULAR HGB CONC 33.7 g/dL (31.9-34.8); MEAN CORPUSCULAR VOLUME 90.7 fL (76.7-100.5); MEAN PLATELET VOLUME 7.9 fL (7.1-12.4); MONOCYTES ABSOLUTE AUTO 1.2 x10-3/uL (0.3-1.0); MONOCYTES PERCENT AUTO 9.2 % (4.4-15.7); NEUTROPHILS ABSOLUTE AUTO 10.9 x10-3/uL (1.5-6.3); NEUTROPHILS PERCENT AUTO 84.8 % (30.8-76.2); PLATELET COUNT,PLT 225 x10(3)uL (151-488); RED BLOOD CELL COUNT 2.97 x10(6)uL (3.60-5.20); RED CELL DISTRIBUTION WIDTH 14.8 % (12.3-16.5); WHITE BLOOD CELL COUNT,WBC 12.9 x10-3/uL (3.0-10.3)
[2025-02-24] MEDS: Sodium Chloride 0.9% 1,000 ML IV SCH (16:02)
[2025-02-24] MEDS: Sodium Chloride 0.9% 10 ML Syringe FLUSH PRN (16:04)
[2025-02-24 16:13] LABS: A/G RATIO 0.6; ALANINE AMINOTRANSFERASE,ALT 26 U/L (12-36); ALKALINE PHOSPHATASE 96 IU/L (56-112); ASPARTATE AMNIOTRANSFERASE,AST 29 IU/L (5-25); BILIRUBIN TOTAL 0.6 mg/dL (0.1-1.3); BLOOD UREA NITROGEN,BUN 15 mg/dL (7-18); BUN/CREATININE RATIO 9.4 (9-20); CALCIUM 8.7 mg/dL (8.6-10.2); CARBON DIOXIDE,CO2 33 mmol/L (21-32); CREATININE 1.6 mg/dL (0.55-1.02); EST CRCL DRUG DOSING (CG) 21.82 mL/min; ESTIMATED GFR 33 mL/min (>60); GLUCOSE RANDOM 120 mg/dL (80-116); POTASSIUM,K 3.2 mmol/L (3.5-5.3); PROTEIN TOTAL,TP 7.8 g/dL (6.0-8.0); SODIUM,NA 129 mmol/L (135-145)
[2025-02-24 16:16] LABS: CHLORIDE,CL 89 mmol/L (100-110); MAGNESIUM 1.2 mg/dL (1.8-2.5)
[2025-02-24 16:24] LABS: APPEARANCE,URINE CLEAR (CLEAR); BILIRUBIN,URINE NEGATIVE (NEGATIVE); COLOR,URINE YELLOW (YELLOW); GLUCOSE,URINE NORMAL (NORMAL); KETONES,URINE NEGATIVE (NEGATIVE); LEUKOCYTE ESTERASE,URINE NEGATIVE (NEGATIVE); NITRITE,URINE NEGATIVE (NEGATIVE); OCCULT BLOOD,URINE NEGATIVE (NEGATIVE); PROTEIN,URINE NEGATIVE (NEGATIVE); UROBILINOGEN,URINE NORMAL (NEGATIVE)
[2025-02-24] MEDS: Magnesium Sulfate 2 GM/50 mL 2 GM in Premix Bag 1 BAG IV ONE (17:03)
[2025-02-24] MEDS: Potassium Chloride 20 MEQ Tab.ER PO ONE (17:12)
[2025-02-24] MEDS: Atropine/Diphenoxylate 0.025-2.5 MG Tab PO ONE (17:15)
== END 2025-02-24 19:15 | disposition home or self-care (01) ==
LOC: FB.ED 15:16
DX: E86.0 Dehydration (principal); E87.6 Hypokalemia; E83.42 Hypomagnesemia; E87.1 Hypo-osmolality and hyponatremia; D64.9 Anemia, unspecified; I10 Essential (primary) hypertension; E66.9 Obesity, unspecified; Z90.49 Acquired absence of other specified parts of digestive tract; F17.200 Nicotine dependence, unspecified, uncomplicated; Z79.899 Other long term (current) drug therapy; Z91.013 Allergy to seafood; Z88.8 Allergy status to other drugs, medicaments and biological substances
CPT/HCPCS: 36415; 71045; 80053; 81003; 83735; 84484; 85025; 93005; 96361; 96365; 99285-25; A9270-GY; J3475; J7030

== ENCOUNTER 2025-02-28 14:17 | Inpatient (IN) | payer MEDICARE ==
[2025-02-28 14:58] LABS: HEMATOCRIT 27.9 % (34.2-48.2); HEMOGLOBIN 9.3 g/dL (11.4-15.5); MEAN CORPUSCULAR HEMOGLOBIN 30.3 pg (23.9-33.9); MEAN CORPUSCULAR HGB CONC 33.5 g/dL (31.9-34.8); MEAN CORPUSCULAR VOLUME 90.5 fL (76.7-100.5); MEAN PLATELET VOLUME 8.2 fL (7.1-12.4); PLATELET COUNT,PLT 264 x10(3)uL (151-488); RED BLOOD CELL COUNT 3.08 x10(6)uL (3.60-5.20); RED CELL DISTRIBUTION WIDTH 14.9 % (12.3-16.5)
[2025-02-28] MEDS ORDERED: Sodium Chloride 0.9% 1,000 ML IV SCH (15:00)
[2025-02-28 15:07] LABS: A/G RATIO 0.6; ALANINE AMINOTRANSFERASE,ALT 24 U/L (12-36); ALBUMIN 2.9 g/dL (3.2-4.6); ALKALINE PHOSPHATASE 103 IU/L (56-112); ASPARTATE AMNIOTRANSFERASE,AST 26 IU/L (5-25); BILIRUBIN TOTAL 0.6 mg/dL (0.1-1.3); BLOOD UREA NITROGEN,BUN 18 mg/dL (7-18); CARBON DIOXIDE,CO2 30 mmol/L (21-32); CREATININE 1.5 mg/dL (0.55-1.02); ESTIMATED GFR 36 mL/min (>60); GLUCOSE RANDOM 121 mg/dL (80-116); POTASSIUM,K 4.1 mmol/L (3.5-5.3); PROTEIN TOTAL,TP 7.8 g/dL (6.0-8.0); SODIUM,NA 125 mmol/L (135-145)
[2025-02-28 15:10] LABS: TROPONIN I 14.5 pg/mL (4.0-60.3)
[2025-02-28 15:15] LABS: CHLORIDE,CL 89 mmol/L (100-110)
[2025-02-28 15:23] LABS: BILIRUBIN,URINE NEGATIVE (NEGATIVE); GLUCOSE,URINE NORMAL (NORMAL); KETONES,URINE NEGATIVE (NEGATIVE); LEUKOCYTE ESTERASE,URINE NEGATIVE (NEGATIVE); NITRITE,URINE NEGATIVE (NEGATIVE); OCCULT BLOOD,URINE NEGATIVE (NEGATIVE); PROTEIN,URINE NEGATIVE (NEGATIVE); UROBILINOGEN,URINE NORMAL (NEGATIVE)
[2025-02-28] MEDS: Prochlorperazine 10 MG/2 ML SDV IVPUSH ONE (15:23)
[2025-02-28 15:25] LABS: APPEARANCE,URINE CLEAR (CLEAR); COLOR,URINE YELLOW (YELLOW)
[2025-02-28 15:36] LABS: BAND PERCENT MAN 2 % (0-6); LYMPHOCYTES PERCENT MAN 4 % (13-37); MONOCYTES PERCENT MAN 5 % (4-12); SEG NEUTROPHILS PERCENT MAN 89 % (46-82)
[2025-02-28] MEDS: Sodium Chloride 0.9% 1,000 ML IV SCH (15:42)
[2025-02-28 15:45] LABS: LACTIC ACID 1.8 mmol/L (0.4-2.0)
[2025-02-28] MEDS: Sodium Chloride 0.9% 500 ML IV ONE ×2 (17:00→17:52)
[2025-02-28] MEDS: Cefepime 2 GM Vial IVPUSH ONE (17:16)
[2025-02-28] MEDS: VANCOmycin 1 GM/200 ML 1 GM in Premix Bag 1 BAG IV SCH (17:16)
[2025-02-28] MEDS ORDERED: Atropine/Diphenoxylate 0.025-2.5 MG Tab PO PRN (17:52)
[2025-02-28] MEDS ORDERED: Prochlorperazine 5 MG in Sodium Chloride 0.9% 50 ML IV PRN (17:52)
[2025-02-28] MEDS: Prochlorperazine 5 MG in Sodium Chloride 0.9% 50 ML IV ONE (19:51)
[2025-02-28] MEDS: Cefepime 2 GM Vial IVPUSH SCH (19:51)
[2025-02-28] MEDS: Enoxaparin 40 MG/0.4 ML Syringe SUBCUT SCH (20:11)
[2025-03-01] MEDS: Cefepime 2 GM Vial IVPUSH SCH (05:22)
[2025-03-01 06:43] LABS: HEMATOCRIT 23.8 % (34.2-48.2); HEMOGLOBIN 7.9 g/dL (11.4-15.5); MEAN CORPUSCULAR HEMOGLOBIN 30.2 pg (23.9-33.9); MEAN CORPUSCULAR HGB CONC 33.3 g/dL (31.9-34.8); MEAN CORPUSCULAR VOLUME 90.8 fL (76.7-100.5); PLATELET COUNT,PLT 237 x10(3)uL (151-488); RED BLOOD CELL COUNT 2.62 x10(6)uL (3.60-5.20); RED CELL DISTRIBUTION WIDTH 15.1 % (12.3-16.5); WHITE BLOOD CELL COUNT,WBC 13.3 x10-3/uL (3.0-10.3)
[2025-03-01 06:57] LABS: A/G RATIO 0.6; ALANINE AMINOTRANSFERASE,ALT 21 U/L (12-36); ALBUMIN 2.4 g/dL (3.2-4.6); ALKALINE PHOSPHATASE 93 IU/L (56-112); ASPARTATE AMNIOTRANSFERASE,AST 24 IU/L (5-25); BILIRUBIN TOTAL 0.6 mg/dL (0.1-1.3); BLOOD UREA NITROGEN,BUN 21 mg/dL (7-18); BUN/CREATININE RATIO 13.1 (9-20); CALCIUM 8.6 mg/dL (8.6-10.2); CARBON DIOXIDE,CO2 29 mmol/L (21-32); CHLORIDE,CL 92 mmol/L (100-110); CREATININE 1.6 mg/dL (0.55-1.02); EST CRCL DRUG DOSING (CG) 21.82 mL/min; ESTIMATED GFR 33 mL/min (>60); GLUCOSE RANDOM 95 mg/dL (80-116); POTASSIUM,K 3.9 mmol/L (3.5-5.3); PROTEIN TOTAL,TP 6.7 g/dL (6.0-8.0); SODIUM,NA 127 mmol/L (135-145)
[2025-03-01 07:13] LABS: BAND PERCENT MAN 6 % (0-6); EOSINOPHILS PERCENT MAN 1 % (0-5); LYMPHOCYTES PERCENT MAN 6 % (13-37); MONOCYTES PERCENT MAN 7 % (4-12); SEG NEUTROPHILS PERCENT MAN 80 % (46-82)
[2025-03-01] MEDS ORDERED: VANCOmycin 750 MG in Sodium Chloride 0.9% 250 ML IV SCH (17:00)
[2025-03-01] MEDS: Amiodarone 200 MG Tab PO SCH (17:02)
[2025-03-01] MEDS: VANCOmycin 125 MG Cap PO SCH (17:02)
[2025-03-01] MEDS: Rosuvastatin 10 MG Tab PO SCH (17:02)
[2025-03-01] MEDS: Apixaban 5 MG Tab PO SCH (20:34)
[2025-03-01] MEDS: Zolpidem 5 MG Tab PO SCH (20:34)
[2025-03-01] MEDS: Metoprolol Succinate 50 MG Tab.ER PO SCH (20:34)
[2025-03-01] MEDS: VANCOmycin 1 GM/200 ML 1 GM in Premix Bag 1 BAG IV SCH (23:08)
[2025-03-02 07:01] LABS: BLOOD UREA NITROGEN,BUN 20 mg/dL (7-18); BUN/CREATININE RATIO 14.3 (9-20); CALCIUM 8.4 mg/dL (8.6-10.2); CARBON DIOXIDE,CO2 27 mmol/L (21-32); CHLORIDE,CL 94 mmol/L (100-110); CREATININE 1.4 mg/dL (0.55-1.02); EST CRCL DRUG DOSING (CG) 24.94 mL/min; ESTIMATED GFR 39 mL/min (>60); GLUCOSE RANDOM 84 mg/dL (80-116); POTASSIUM,K 3.9 mmol/L (3.5-5.3); SODIUM,NA 128 mmol/L (135-145)
[2025-03-02 07:02] LABS: BASOPHILS PERCENT AUTO 0.3 % (0.2-1.5); EOSINOPHILS ABSOLUTE AUTO 0.1 x10-3/uL (0.0-0.8); EOSINOPHILS PERCENT AUTO 1.7 % (0.6-8.1); HEMATOCRIT 23.1 % (34.2-48.2); HEMOGLOBIN 7.8 g/dL (11.4-15.5); LYMPHOCYTES ABSOLUTE AUTO 0.7 x10-3/uL (1.0-4.4); LYMPHOCYTES PERCENT AUTO 10.2 % (18.4-52.1); MEAN CORPUSCULAR HEMOGLOBIN 30.9 pg (23.9-33.9); MEAN CORPUSCULAR HGB CONC 33.7 g/dL (31.9-34.8); MEAN CORPUSCULAR VOLUME 91.6 fL (76.7-100.5); MEAN PLATELET VOLUME 8.1 fL (7.1-12.4); MONOCYTES ABSOLUTE AUTO 0.8 x10-3/uL (0.3-1.0); MONOCYTES PERCENT AUTO 11.6 % (4.4-15.7); NEUTROPHILS ABSOLUTE AUTO 5.1 x10-3/uL (1.5-6.3); NEUTROPHILS PERCENT AUTO 76.2 % (30.8-76.2); PLATELET COUNT,PLT 236 x10(3)uL (151-488); RED BLOOD CELL COUNT 2.53 x10(6)uL (3.60-5.20); RED CELL DISTRIBUTION WIDTH 15.3 % (12.3-16.5); WHITE BLOOD CELL COUNT,WBC 6.7 x10-3/uL (3.0-10.3)
[2025-03-02] MEDS: Clopidogrel 75 MG Tab PO SCH (08:56)
[2025-03-02] MEDS: Sodium Chloride 0.9% 1,000 ML IV SCH (13:18)
[2025-03-03 07:03] LABS: BASOPHILS PERCENT AUTO 0.5 % (0.2-1.5); EOSINOPHILS ABSOLUTE AUTO 0.1 x10-3/uL (0.0-0.8); EOSINOPHILS PERCENT AUTO 2.4 % (0.6-8.1); HEMATOCRIT 24.4 % (34.2-48.2); HEMOGLOBIN 8.1 g/dL (11.4-15.5); LYMPHOCYTES ABSOLUTE AUTO 0.8 x10-3/uL (1.0-4.4); LYMPHOCYTES PERCENT AUTO 15.1 % (18.4-52.1); MEAN CORPUSCULAR HEMOGLOBIN 30.2 pg (23.9-33.9); MEAN CORPUSCULAR HGB CONC 33.2 g/dL (31.9-34.8); MEAN CORPUSCULAR VOLUME 91.1 fL (76.7-100.5); MEAN PLATELET VOLUME 7.6 fL (7.1-12.4); MONOCYTES ABSOLUTE AUTO 0.7 x10-3/uL (0.3-1.0); MONOCYTES PERCENT AUTO 12.8 % (4.4-15.7); NEUTROPHILS ABSOLUTE AUTO 3.6 x10-3/uL (1.5-6.3); NEUTROPHILS PERCENT AUTO 69.2 % (30.8-76.2); PLATELET COUNT,PLT 264 x10(3)uL (151-488); RED BLOOD CELL COUNT 2.68 x10(6)uL (3.60-5.20); RED CELL DISTRIBUTION WIDTH 14.9 % (12.3-16.5); WHITE BLOOD CELL COUNT,WBC 5.2 x10-3/uL (3.0-10.3)
[2025-03-03 07:09] LABS: BLOOD UREA NITROGEN,BUN 16 mg/dL (7-18); BUN/CREATININE RATIO 10.7 (9-20); CALCIUM 8.3 mg/dL (8.6-10.2); CARBON DIOXIDE,CO2 26 mmol/L (21-32); CHLORIDE,CL 97 mmol/L (100-110); CREATININE 1.5 mg/dL (0.55-1.02); EST CRCL DRUG DOSING (CG) 23.28 mL/min; ESTIMATED GFR 36 mL/min (>60); GLUCOSE RANDOM 95 mg/dL (80-116); POTASSIUM,K 3.7 mmol/L (3.5-5.3); SODIUM,NA 129 mmol/L (135-145)
[2025-03-03] MEDS: Sodium Chloride 0.9% 1,000 ML IV SCH (16:05)
[2025-03-03] MEDS: VANCOmycin 125 MG Cap PO SCH (17:32)
[2025-03-03] MEDS: metroNIDAZOLE/Normal Saline 500 MG in Premix Bag 1 BAG IV SCH (17:33)
[2025-03-04 07:20] LABS: BASOPHILS PERCENT AUTO 0.5 % (0.2-1.5); EOSINOPHILS ABSOLUTE AUTO 0.1 x10-3/uL (0.0-0.8); EOSINOPHILS PERCENT AUTO 1.7 % (0.6-8.1); HEMATOCRIT 23.3 % (34.2-48.2); HEMOGLOBIN 7.6 g/dL (11.4-15.5); LYMPHOCYTES ABSOLUTE AUTO 0.7 x10-3/uL (1.0-4.4); LYMPHOCYTES PERCENT AUTO 10.9 % (18.4-52.1); MEAN CORPUSCULAR HEMOGLOBIN 30.1 pg (23.9-33.9); MEAN CORPUSCULAR HGB CONC 32.8 g/dL (31.9-34.8); MEAN CORPUSCULAR VOLUME 91.7 fL (76.7-100.5); MONOCYTES ABSOLUTE AUTO 0.7 x10-3/uL (0.3-1.0); NEUTROPHILS ABSOLUTE AUTO 4.9 x10-3/uL (1.5-6.3); NEUTROPHILS PERCENT AUTO 75.9 % (30.8-76.2); PLATELET COUNT,PLT 253 x10(3)uL (151-488); RED BLOOD CELL COUNT 2.54 x10(6)uL (3.60-5.20); WHITE BLOOD CELL COUNT,WBC 6.4 x10-3/uL (3.0-10.3)
[2025-03-04 07:24] LABS: BLOOD UREA NITROGEN,BUN 11 mg/dL (7-18); BUN/CREATININE RATIO 9.2 (9-20); CALCIUM 8.3 mg/dL (8.6-10.2); CARBON DIOXIDE,CO2 24 mmol/L (21-32); CHLORIDE,CL 99 mmol/L (100-110); CREATININE 1.2 mg/dL (0.55-1.02); ESTIMATED GFR 47 mL/min (>60); GLUCOSE RANDOM 98 mg/dL (80-116); POTASSIUM,K 3.9 mmol/L (3.5-5.3); SODIUM,NA 130 mmol/L (135-145)
[2025-03-05] MEDS: Sodium Chloride 0.9% 10 ML Syringe FLUSH PRN (01:18)
[2025-03-05 06:18] LABS: BASOPHILS PERCENT AUTO 0.6 % (0.2-1.5); EOSINOPHILS ABSOLUTE AUTO 0.1 x10-3/uL (0.0-0.8); EOSINOPHILS PERCENT AUTO 2.1 % (0.6-8.1); HEMATOCRIT 23.2 % (34.2-48.2); HEMOGLOBIN 7.7 g/dL (11.4-15.5); LYMPHOCYTES ABSOLUTE AUTO 0.7 x10-3/uL (1.0-4.4); LYMPHOCYTES PERCENT AUTO 10.9 % (18.4-52.1); MEAN CORPUSCULAR HEMOGLOBIN 30.2 pg (23.9-33.9); MEAN CORPUSCULAR VOLUME 91.4 fL (76.7-100.5); MEAN PLATELET VOLUME 7.7 fL (7.1-12.4); MONOCYTES ABSOLUTE AUTO 0.8 x10-3/uL (0.3-1.0); MONOCYTES PERCENT AUTO 11.6 % (4.4-15.7); NEUTROPHILS PERCENT AUTO 74.8 % (30.8-76.2); PLATELET COUNT,PLT 278 x10(3)uL (151-488); RED BLOOD CELL COUNT 2.54 x10(6)uL (3.60-5.20); RED CELL DISTRIBUTION WIDTH 15.1 % (12.3-16.5); WHITE BLOOD CELL COUNT,WBC 6.6 x10-3/uL (3.0-10.3)
[2025-03-05 06:22] LABS: BLOOD UREA NITROGEN,BUN 8 mg/dL (7-18); BUN/CREATININE RATIO 7.3 (9-20); CALCIUM 8.6 mg/dL (8.6-10.2); CARBON DIOXIDE,CO2 25 mmol/L (21-32); CHLORIDE,CL 99 mmol/L (100-110); CREATININE 1.1 mg/dL (0.55-1.02); EST CRCL DRUG DOSING (CG) 31.74 mL/min; ESTIMATED GFR 52 mL/min (>60); GLUCOSE RANDOM 102 mg/dL (80-116); POTASSIUM,K 3.7 mmol/L (3.5-5.3); SODIUM,NA 130 mmol/L (135-145)
[2025-03-05] MEDS: Furosemide 40 MG Tab PO SCH (10:12)
[2025-03-05 13:00] LABS: ADENOVIRUS 40/41 PCR Not Detected; ASTROVIRUS PCR Not Detected; CAMPYLOBACTER PCR Not Detected; CRYPTOSPORIDIUM PCR Not Detected; CYCLOSPORA CAYETANENSIS PCR Not Detected; ENTAMOEBA HISTOLYTICA PCR Not Detected; ENTEROAGGREGATIVE E. COLI PCR Not Detected; ENTEROPATHOGENIC E. COLI PCR Not Detected; ENTEROTOXIGENIC E. COLI PCR Not Detected; GIARDIA LAMBLIA PCR Not Detected; NOROVIRUS GI/GII PCR Not Detected; PLESIOMONAS SHIGELLOIDES PCR Not Detected; ROTAVIRUS A PCR Not Detected; SALMONELLA PCR Not Detected; SAPOVIRUS PCR Not Detected; SHIG/ENTEROINVASIVE E COLI PCR Not Detected; SHIGA TOXIN-PRODUC E. COLI PCR Not Detected; VIBRIO CHOLERAE PCR Not Detected; VIBRIO PCR Not Detected; YERSINIA ENTEROCOLITICA PCR Not Detected
== END 2025-03-05 15:30 | disposition home health service (06) | DRG 372 ==
LOC: FB.ED 14:17 → FB.MS 18:13
PROVIDERS: ADMIT Emergency Medicine; ATTEND Internal Medicine
DX: A04.72 Enterocolitis due to Clostridium difficile, not specified as recurrent (principal); I13.0 Hypertensive heart and chronic kidney disease with heart failure and stage 1 through stage 4 chronic kidney disease, or unspecified chronic kidney disease; E87.1 Hypo-osmolality and hyponatremia; N18.9 Chronic kidney disease, unspecified; K86.1 Other chronic pancreatitis; R53.1 Weakness; Z86.73 Personal history of transient ischemic attack (TIA), and cerebral infarction without residual deficits; H54.7 Unspecified visual loss; F17.200 Nicotine dependence, unspecified, uncomplicated; Z91.013 Allergy to seafood; Z91.041 Radiographic dye allergy status; I48.91 Unspecified atrial fibrillation; I11.0 Hypertensive heart disease with heart failure; I50.9 Heart failure, unspecified; M19.90 Unspecified osteoarthritis, unspecified site; R42 Dizziness and giddiness; E66.9 Obesity, unspecified; D64.9 Anemia, unspecified; E86.0 Dehydration; I95.9 Hypotension, unspecified; Z72.0 Tobacco use; Z90.49 Acquired absence of other specified parts of digestive tract; Z88.8 Allergy status to other drugs, medicaments and biological substances; Z79.899 Other long term (current) drug therapy; Z68.28 Body mass index [BMI] 28.0-28.9, adult; Z79.01 Long term (current) use of anticoagulants
CPT/HCPCS: 36415; 71045; 74176; 80048; 80053; 80202; 81003; 83605; 83735; 83880; 84484; 85025; 87040; 87230; 87507; 92610-GN; 93005; 93010; 96365; 96375; 97165-GO; 97535-GO; 99222; 99232; 99238; 99285; 99285-25; A9270-GY; J0692; J0780; J1836; J3372; J7030; J7040; U0002

== ENCOUNTER 2025-03-28 13:52 | Emergency (ER) | payer MEDICARE ==
[2025-03-28] MEDS ORDERED: Sodium Chloride 0.9% 10 ML Syringe FLUSH PRN (14:11)
[2025-03-28 15:00] LABS: MEAN PLATELET VOLUME 7.5 fL (7.1-12.4); PLATELET COUNT,PLT 238 x10(3)uL (151-488); RED BLOOD CELL COUNT 3.05 x10(6)uL (3.60-5.20); RED CELL DISTRIBUTION WIDTH 16.4 % (12.3-16.5); WHITE BLOOD CELL COUNT,WBC 17.8 x10-3/uL (3.0-10.3)
[2025-03-28 15:06] LABS: BLOOD UREA NITROGEN,BUN 28 mg/dL (7-18); CARBON DIOXIDE,CO2 29 mmol/L (21-32); CHLORIDE,CL 93 mmol/L (100-110); CREATININE 1.8 mg/dL (0.55-1.02); EST CRCL DRUG DOSING (CG) 22.34 mL/min; ESTIMATED GFR 29 mL/min (>60); GLUCOSE RANDOM 92 mg/dL (80-116); POTASSIUM,K 3.7 mmol/L (3.5-5.3); SODIUM,NA 129 mmol/L (135-145)
[2025-03-28 15:20] LABS: PRO B-TYPE NATRIUR PEPT,BNPPRO 3287.0 pg/mL (<=450)
[2025-03-28 15:22] LABS: BAND PERCENT MAN 2 % (0-6); LYMPHOCYTES PERCENT MAN 3 % (13-37); MONOCYTES PERCENT MAN 6 % (4-12); SEG NEUTROPHILS PERCENT MAN 89 % (46-82)
[2025-03-28 15:40] LABS: GLUCOSE,URINE NORMAL (NORMAL); OCCULT BLOOD,URINE NEGATIVE (NEGATIVE)
[2025-03-28 15:45] LABS: APPEARANCE,URINE CLEAR (CLEAR); SQUAMOUS EPITHELIAL CELLS,UR RARE (NS,R,O)
[2025-03-28] MEDS ORDERED: Naloxone 0.4 MG/ML SDV IVPUSH PRN (17:24)
[2025-03-28] MEDS ORDERED: fentaNYL 100 MCG/2 ML SDV IVPUSH ONE (17:24)
== END 2025-03-28 19:25 | disposition other institution (70) ==
LOC: FB.ED 13:52
DX: A04.72 Enterocolitis due to Clostridium difficile, not specified as recurrent (principal); E86.0 Dehydration; I48.91 Unspecified atrial fibrillation; I11.0 Hypertensive heart disease with heart failure; I50.9 Heart failure, unspecified; Z90.49 Acquired absence of other specified parts of digestive tract; Z88.8 Allergy status to other drugs, medicaments and biological substances; Z91.013 Allergy to seafood; Z79.01 Long term (current) use of anticoagulants; Z79.899 Other long term (current) drug therapy
CPT/HCPCS: 36415; 71250; 74176; 80048; 81001; 82272; 83605; 83880; 84484; 85025; 86140; 87230; 93005; 96360; 96361; 99285; 99285-25; A9270-GY; J7030

== ENCOUNTER 2025-04-30 13:10 | Inpatient (IN) | payer MEDICARE, MEDICAID ==
[2025-04-30] MEDS: Ondansetron 4 MG/2 ML SDV IVPUSH ONE (13:42)
[2025-04-30 13:44] LABS: MEAN PLATELET VOLUME 7.9 fL (7.1-12.4); PLATELET COUNT,PLT 239 x10(3)uL (151-488); RED BLOOD CELL COUNT 3.39 x10(6)uL (3.60-5.20); RED CELL DISTRIBUTION WIDTH 17.0 % (12.3-16.5); WHITE BLOOD CELL COUNT,WBC 17.9 x10-3/uL (3.0-10.3)
[2025-04-30 13:47] LABS: GLUCOSE,URINE NORMAL (NORMAL); OCCULT BLOOD,URINE NEGATIVE (NEGATIVE)
[2025-04-30 13:49] LABS: APPEARANCE,URINE CLEAR (CLEAR)
[2025-04-30 13:56] LABS: A/G RATIO 0.6; ALANINE AMINOTRANSFERASE,ALT 26 U/L (12-36); ASPARTATE AMNIOTRANSFERASE,AST 27 IU/L (5-25); BILIRUBIN TOTAL 0.4 mg/dL (0.1-1.3); BLOOD UREA NITROGEN,BUN 24 mg/dL (7-18); CARBON DIOXIDE,CO2 25 mmol/L (21-32); CHLORIDE,CL 96 mmol/L (100-110); CREATININE 1.7 mg/dL (0.55-1.02); ESTIMATED GFR 31 mL/min (>60); GLUCOSE RANDOM 167 mg/dL (80-116); POTASSIUM,K 2.9 mmol/L (3.5-5.3); PROTEIN TOTAL,TP 7.2 g/dL (6.0-8.0)
[2025-04-30 14:04] LABS: BAND PERCENT MAN 6 % (0-6); LYMPHOCYTES PERCENT MAN 5 % (13-37); METAMYELOCYTE PERCENT MAN 1 % (0-0); MONOCYTES PERCENT MAN 5 % (4-12); SEG NEUTROPHILS PERCENT MAN 83 % (46-82)
[2025-04-30 14:05] LABS: EST CRCL DRUG DOSING (CG) 20.54 mL/min; SODIUM,NA 119 mmol/L (135-145)
[2025-04-30] MEDS: Magnesium Sulf/Wat 4 GM/50 mL 4 GM in Premix Bag 1 BAG IV ONE (15:08)
[2025-04-30] MEDS: Potassium Chloride 20 MEQ in Premix Bag 1 BAG IV ONE (15:08)
[2025-04-30 17:51] LABS: MEAN PLATELET VOLUME 8.1 fL (7.1-12.4); PLATELET COUNT,PLT 218 x10(3)uL (151-488); RED BLOOD CELL COUNT 3.00 x10(6)uL (3.60-5.20); RED CELL DISTRIBUTION WIDTH 17.2 % (12.3-16.5); WHITE BLOOD CELL COUNT,WBC 17.4 x10-3/uL (3.0-10.3)
[2025-04-30 18:03] LABS: INR 1.08 (1.00-1.24); PTT,PARTIAL THROMBOPLSTIN TIME 30.9 SECONDS (24.4-33.2)
[2025-04-30 18:07] LABS: A/G RATIO 0.6; ALANINE AMINOTRANSFERASE,ALT 25 U/L (12-36); ASPARTATE AMNIOTRANSFERASE,AST 22 IU/L (5-25); BILIRUBIN TOTAL 0.3 mg/dL (0.1-1.3); BLOOD UREA NITROGEN,BUN 21 mg/dL (7-18); CARBON DIOXIDE,CO2 28 mmol/L (21-32); CHLORIDE,CL 103 mmol/L (100-110); CREATININE 1.4 mg/dL (0.55-1.02); EST CRCL DRUG DOSING (CG) 24.94 mL/min; ESTIMATED GFR 39 mL/min (>60); GLUCOSE RANDOM 114 mg/dL (80-116); POTASSIUM,K 3.2 mmol/L (3.5-5.3); PROTEIN TOTAL,TP 6.5 g/dL (6.0-8.0); SODIUM,NA 137 mmol/L (135-145)
[2025-04-30 18:32] LABS: BAND PERCENT MAN 7 % (0-6); LYMPHOCYTES PERCENT MAN 2 % (13-37); MONOCYTES PERCENT MAN 5 % (4-12); SEG NEUTROPHILS PERCENT MAN 86 % (46-82)
[2025-04-30] MEDS: LORazepam 2 MG/ML SDV IVPUSH ONE (20:14)
[2025-04-30] MEDS ORDERED: Heparin Sodium 5,000 Units/ML Vial SUBCUT SCH (21:00)
[2025-05-01 05:33] LABS: MEAN PLATELET VOLUME 7.5 fL (7.1-12.4); PLATELET COUNT,PLT 201 x10(3)uL (151-488); RED BLOOD CELL COUNT 2.74 x10(6)uL (3.60-5.20); RED CELL DISTRIBUTION WIDTH 17.0 % (12.3-16.5); WHITE BLOOD CELL COUNT,WBC 18.5 x10-3/uL (3.0-10.3)
[2025-05-01 05:48] LABS: A/G RATIO 0.5; ALANINE AMINOTRANSFERASE,ALT 17 U/L (12-36); ASPARTATE AMNIOTRANSFERASE,AST 19 IU/L (5-25); BILIRUBIN TOTAL 0.3 mg/dL (0.1-1.3); BLOOD UREA NITROGEN,BUN 18 mg/dL (7-18); CARBON DIOXIDE,CO2 28 mmol/L (21-32); CHLORIDE,CL 104 mmol/L (100-110); CREATININE 1.4 mg/dL (0.55-1.02); EST CRCL DRUG DOSING (CG) 24.94 mL/min; ESTIMATED GFR 39 mL/min (>60); GLUCOSE RANDOM 93 mg/dL (80-116); POTASSIUM,K 3.1 mmol/L (3.5-5.3); PROTEIN TOTAL,TP 5.4 g/dL (6.0-8.0); SODIUM,NA 138 mmol/L (135-145)
[2025-05-01 05:57] LABS: BAND PERCENT MAN 6 % (0-6); LYMPHOCYTES PERCENT MAN 4 % (13-37); MONOCYTES PERCENT MAN 4 % (4-12); SEG NEUTROPHILS PERCENT MAN 86 % (46-82)
[2025-05-01] MEDS: Iopamidol 755 Mg/ML 100 ML Bottle IV ONE (15:07)
[2025-05-01 17:19] LABS: MEAN PLATELET VOLUME 7.8 fL (7.1-12.4); PLATELET COUNT,PLT 193 x10(3)uL (151-488); RED BLOOD CELL COUNT 2.78 x10(6)uL (3.60-5.20); RED CELL DISTRIBUTION WIDTH 17.3 % (12.3-16.5); WHITE BLOOD CELL COUNT,WBC 23.3 x10-3/uL (3.0-10.3)
[2025-05-01 17:36] LABS: LYMPHOCYTES PERCENT MAN 4 % (13-37); MONOCYTES PERCENT MAN 4 % (4-12); SEG NEUTROPHILS PERCENT MAN 92 % (46-82)
[2025-05-01] MEDS: metroNIDAZOLE/Normal Saline 500 MG in Premix Bag 1 BAG IV SCH (19:04)
[2025-05-01] MEDS ORDERED: Potassium Chloride 20 MEQ Tab.ER PO SCH (21:00)
[2025-05-02 22:27] LABS: ADENOVIRUS 40/41 PCR Not Detected; ASTROVIRUS PCR Not Detected; CRYPTOSPORIDIUM PCR Not Detected; CYCLOSPORA CAYETANENSIS PCR Not Detected; ENTAMOEBA HISTOLYTICA PCR Not Detected; ENTEROAGGREGATIVE E. COLI PCR Not Detected; ENTEROPATHOGENIC E. COLI PCR Not Detected; ENTEROTOXIGENIC E. COLI PCR Not Detected; GIARDIA LAMBLIA PCR Not Detected; NOROVIRUS GI/GII PCR Not Detected; PLESIOMONAS SHIGELLOIDES PCR Not Detected; ROTAVIRUS A PCR Not Detected; SALMONELLA PCR Not Detected; SAPOVIRUS PCR Not Detected; SHIG/ENTEROINVASIVE E COLI PCR Not Detected; SHIGA TOXIN-PRODUC E. COLI PCR Not Detected; VIBRIO CHOLERAE PCR Not Detected; VIBRIO PCR Not Detected; YERSINIA ENTEROCOLITICA PCR Not Detected
[2025-05-02 22:39] LABS: CREATININE, URINE - PER VOLUME 115 mg/dL; HOURS COLLECTED Random hr; SODIUM, URINE - PER VOLUME 43 mmol/L
[2025-05-03 22:44] LABS: OSMOLALITY 285 mOsm/kg (280-303)
[2025-05-03 22:44] LABS: URINE OSMOLALITY 390 mOsm/kg (50-800)
== END 2025-05-01 21:20 | DRG 641 ==
LOC: FB.ED 13:10 → FB.MS 16:17
PROVIDERS: ADMIT Internal Medicine; ATTEND Family Medicine
DX: E87.1 Hypo-osmolality and hyponatremia (principal); K52.9 Noninfective gastroenteritis and colitis, unspecified; I48.0 Paroxysmal atrial fibrillation; I48.91 Unspecified atrial fibrillation; H54.7 Unspecified visual loss; I11.0 Hypertensive heart disease with heart failure; I50.9 Heart failure, unspecified; M19.90 Unspecified osteoarthritis, unspecified site; F41.9 Anxiety disorder, unspecified; E66.9 Obesity, unspecified; F17.200 Nicotine dependence, unspecified, uncomplicated; L89.90 Pressure ulcer of unspecified site, unspecified stage; E87.6 Hypokalemia; E83.42 Hypomagnesemia; E86.0 Dehydration; Z91.041 Radiographic dye allergy status; Z91.013 Allergy to seafood; Z79.899 Other long term (current) drug therapy; Z79.02 Long term (current) use of antithrombotics/antiplatelets; Z98.890 Other specified postprocedural states; Z90.49 Acquired absence of other specified parts of digestive tract; Z68.26 Body mass index [BMI] 26.0-26.9, adult; Z79.01 Long term (current) use of anticoagulants; Z88.8 Allergy status to other drugs, medicaments and biological substances
CPT/HCPCS: 36415; 70450; 73030; 74176; 80053; 81003; 83690; 83735; 85025; 93005; 96361; 96365; 96368; 96375; 99285; J2405; J3475; J3480; J7030 ×2; 74178; 83605; 83930; 83935; 84295; 84300; 85610; 85730; 87040; 87077; 87186; 87230; 87507; 97161-GP; 99222; 99239; A9270-GY; J0696; J1836; Q9967; U0002

== ENCOUNTER 2025-05-25 17:42 | Emergency (ER) | payer MEDICARE, MEDICAID ==
[2025-05-25 18:16] LABS: MEAN PLATELET VOLUME 8.7 fL (7.1-12.4); NEUTROPHILS PERCENT AUTO 77.7 % (30.8-76.2); PLATELET COUNT,PLT 215 x10(3)uL (151-488); RED BLOOD CELL COUNT 3.38 x10(6)uL (3.60-5.20); RED CELL DISTRIBUTION WIDTH 16.6 % (12.3-16.5); WHITE BLOOD CELL COUNT,WBC 7.4 x10-3/uL (3.0-10.3)
[2025-05-25 18:17] LABS: BASOPHILS ABSOLUTE AUTO 0.1 x10-3/uL (0.0-0.1); BASOPHILS PERCENT AUTO 0.8 % (0.2-1.5); EOSINOPHILS ABSOLUTE AUTO 0.1 x10-3/uL (0.0-0.8); EOSINOPHILS PERCENT AUTO 1.8 % (0.6-8.1); LYMPHOCYTES ABSOLUTE AUTO 0.9 x10-3/uL (1.0-4.4); LYMPHOCYTES PERCENT AUTO 12.0 % (18.4-52.1); MONOCYTES ABSOLUTE AUTO 0.6 x10-3/uL (0.3-1.0); MONOCYTES PERCENT AUTO 7.7 % (4.4-15.7); NEUTROPHILS ABSOLUTE AUTO 5.8 x10-3/uL (1.5-6.3)
[2025-05-25 18:18] LABS: BLOOD UREA NITROGEN,BUN 14 mg/dL (7-18); CARBON DIOXIDE,CO2 23 mmol/L (21-32); CHLORIDE,CL 94 mmol/L (100-110); CREATININE 1.2 mg/dL (0.55-1.02); EST CRCL DRUG DOSING (CG) 29.10 mL/min; ESTIMATED GFR 47 mL/min (>60); GLUCOSE RANDOM 134 mg/dL (80-116); POTASSIUM,K 4.8 mmol/L (3.5-5.3); SODIUM,NA 128 mmol/L (135-145)
[2025-05-25 18:24] LABS: A/G RATIO 0.7; ALANINE AMINOTRANSFERASE,ALT 16 U/L (12-36); ASPARTATE AMNIOTRANSFERASE,AST 27 IU/L (5-25); BILIRUBIN TOTAL 0.3 mg/dL (0.1-1.3); PROTEIN TOTAL,TP 7.6 g/dL (6.0-8.0)
[2025-05-25 19:20] LABS: GLUCOSE,URINE NORMAL (NORMAL); OCCULT BLOOD,URINE NEGATIVE (NEGATIVE)
[2025-05-25 19:22] LABS: APPEARANCE,URINE CLEAR (CLEAR)
== END 2025-05-25 22:40 | disposition home or self-care (01) ==
LOC: FB.ED 17:42
DX: R55 Syncope and collapse (principal); I11.0 Hypertensive heart disease with heart failure; I50.9 Heart failure, unspecified; E66.9 Obesity, unspecified; M19.90 Unspecified osteoarthritis, unspecified site; Z79.899 Other long term (current) drug therapy; Z88.8 Allergy status to other drugs, medicaments and biological substances; Z91.013 Allergy to seafood; Z90.49 Acquired absence of other specified parts of digestive tract; Z68.27 Body mass index [BMI] 27.0-27.9, adult
CPT/HCPCS: 36415; 70450; 80053; 81003; 83735; 84484; 85025; 93005; 96360; 99285-25; J7030

== ENCOUNTER 2025-06-02 16:52 | Inpatient (IN) | payer MEDICARE, MEDICAID ==
[2025-06-02] MEDS ORDERED: Sodium Chloride 0.9% 10 ML Syringe FLUSH PRN (16:55)
[2025-06-02 17:07] LABS: BASOPHILS ABSOLUTE AUTO 0.0 x10-3/uL (0.0-0.1); BASOPHILS PERCENT AUTO 0.4 % (0.2-1.5); EOSINOPHILS ABSOLUTE AUTO 0.1 x10-3/uL (0.0-0.8); EOSINOPHILS PERCENT AUTO 0.8 % (0.6-8.1); LYMPHOCYTES ABSOLUTE AUTO 0.9 x10-3/uL (1.0-4.4); LYMPHOCYTES PERCENT AUTO 8.5 % (18.4-52.1); MEAN PLATELET VOLUME 7.7 fL (7.1-12.4); MONOCYTES ABSOLUTE AUTO 0.7 x10-3/uL (0.3-1.0); MONOCYTES PERCENT AUTO 6.7 % (4.4-15.7); NEUTROPHILS ABSOLUTE AUTO 9.0 x10-3/uL (1.5-6.3); NEUTROPHILS PERCENT AUTO 83.6 % (30.8-76.2); PLATELET COUNT,PLT 202 x10(3)uL (151-488); RED BLOOD CELL COUNT 3.09 x10(6)uL (3.60-5.20); RED CELL DISTRIBUTION WIDTH 15.8 % (12.3-16.5); WHITE BLOOD CELL COUNT,WBC 10.8 x10-3/uL (3.0-10.3)
[2025-06-02 17:13] LABS: BLOOD UREA NITROGEN,BUN 16 mg/dL (7-18); CARBON DIOXIDE,CO2 26 mmol/L (21-32); CHLORIDE,CL 97 mmol/L (100-110); CREATININE 1.3 mg/dL (0.55-1.02); ESTIMATED GFR 43 mL/min (>60); GLUCOSE RANDOM 114 mg/dL (80-116); POTASSIUM,K 4.7 mmol/L (3.5-5.3); SODIUM,NA 129 mmol/L (135-145)
[2025-06-02 17:18] LABS: A/G RATIO 0.6; ALANINE AMINOTRANSFERASE,ALT 7 U/L (12-36); ASPARTATE AMNIOTRANSFERASE,AST 15 IU/L (5-25); BILIRUBIN TOTAL 0.4 mg/dL (0.1-1.3); PROTEIN TOTAL,TP 6.9 g/dL (6.0-8.0)
[2025-06-02 17:29] LABS: PRO B-TYPE NATRIUR PEPT,BNPPRO 5905.0 pg/mL (<=450)
[2025-06-02] MEDS: Ondansetron 4 MG/2 ML SDV IV PRN (19:29)
[2025-06-02] MEDS ORDERED: Naloxone 0.4 MG/ML SDV IVPUSH PRN (21:16)
[2025-06-02] MEDS: Acetaminophen/oxyCODONE 325-5 MG Tab PO PRN (23:52)
[2025-06-03] MEDS: Acetaminophen/oxyCODONE 325-5 MG Tab PO PRN (04:12)
[2025-06-03 06:30] LABS: MEAN PLATELET VOLUME 7.7 fL (7.1-12.4); PLATELET COUNT,PLT 176 x10(3)uL (151-488); RED BLOOD CELL COUNT 2.68 x10(6)uL (3.60-5.20); RED CELL DISTRIBUTION WIDTH 15.4 % (12.3-16.5); WHITE BLOOD CELL COUNT,WBC 9.8 x10-3/uL (3.0-10.3)
[2025-06-03 06:40] LABS: A/G RATIO 0.6; ASPARTATE AMNIOTRANSFERASE,AST 15 IU/L (5-25); BILIRUBIN TOTAL 0.4 mg/dL (0.1-1.3); BLOOD UREA NITROGEN,BUN 14 mg/dL (7-18); CARBON DIOXIDE,CO2 25 mmol/L (21-32); CHLORIDE,CL 101 mmol/L (100-110); CREATININE 1.3 mg/dL (0.55-1.02); EST CRCL DRUG DOSING (CG) 26.86 mL/min; ESTIMATED GFR 43 mL/min (>60); GLUCOSE RANDOM 80 mg/dL (80-116); POTASSIUM,K 4.2 mmol/L (3.5-5.3); PROTEIN TOTAL,TP 5.6 g/dL (6.0-8.0); SODIUM,NA 131 mmol/L (135-145)
[2025-06-03 06:43] LABS: ALANINE AMINOTRANSFERASE,ALT < 6 U/L (12-36)
[2025-06-03 06:48] LABS: BAND PERCENT MAN 1 % (0-6); LYMPHOCYTES PERCENT MAN 5 % (13-37); MONOCYTES PERCENT MAN 4 % (4-12); SEG NEUTROPHILS PERCENT MAN 90 % (46-82)
[2025-06-03 06:56] LABS: APPEARANCE,URINE SLIGHTLY CLOUDY (CLEAR); GLUCOSE,URINE NORMAL (NORMAL); OCCULT BLOOD,URINE NEGATIVE (NEGATIVE)
[2025-06-03] MEDS: Acetaminophen/HYDROcodone 325-7.5 MG Tab PO PRN (08:38)
[2025-06-04 06:20] LABS: BASOPHILS ABSOLUTE AUTO 0.0 x10-3/uL (0.0-0.1); BASOPHILS PERCENT AUTO 0.4 % (0.2-1.5); EOSINOPHILS ABSOLUTE AUTO 0.2 x10-3/uL (0.0-0.8); EOSINOPHILS PERCENT AUTO 1.4 % (0.6-8.1); LYMPHOCYTES ABSOLUTE AUTO 1.0 x10-3/uL (1.0-4.4); LYMPHOCYTES PERCENT AUTO 9.6 % (18.4-52.1); MEAN PLATELET VOLUME 7.8 fL (7.1-12.4); MONOCYTES ABSOLUTE AUTO 1.0 x10-3/uL (0.3-1.0); MONOCYTES PERCENT AUTO 9.5 % (4.4-15.7); NEUTROPHILS ABSOLUTE AUTO 8.5 x10-3/uL (1.5-6.3); NEUTROPHILS PERCENT AUTO 79.1 % (30.8-76.2); PLATELET COUNT,PLT 184 x10(3)uL (151-488); RED BLOOD CELL COUNT 2.52 x10(6)uL (3.60-5.20); RED CELL DISTRIBUTION WIDTH 15.3 % (12.3-16.5); WHITE BLOOD CELL COUNT,WBC 10.8 x10-3/uL (3.0-10.3)
[2025-06-04 06:30] LABS: A/G RATIO 0.5; ALANINE AMINOTRANSFERASE,ALT 8 U/L (12-36); ASPARTATE AMNIOTRANSFERASE,AST 15 IU/L (5-25); BILIRUBIN TOTAL 0.3 mg/dL (0.1-1.3); BLOOD UREA NITROGEN,BUN 18 mg/dL (7-18); CARBON DIOXIDE,CO2 22 mmol/L (21-32); CHLORIDE,CL 103 mmol/L (100-110); CREATININE 1.2 mg/dL (0.55-1.02); EST CRCL DRUG DOSING (CG) 29.10 mL/min; ESTIMATED GFR 47 mL/min (>60); GLUCOSE RANDOM 80 mg/dL (80-116); POTASSIUM,K 4.0 mmol/L (3.5-5.3); PROTEIN TOTAL,TP 5.5 g/dL (6.0-8.0); SODIUM,NA 132 mmol/L (135-145)
[2025-06-04] MEDS ORDERED: Non-Formulary Medication 1 Each (Potassium Gluconate [Potassium] 99 MG Tablet) PO SCH (09:00)
[2025-06-04 21:04] LABS: IRON BINDING CAPACITY TOTAL 147 ug/dL (240-450); IRON,SERUM OR PLASMA 14 ug/dL (28-170); TRANSFERRIN SATURATION 10 %sat (20-50)
[2025-06-05 07:13] LABS: A/G RATIO 0.6; ALANINE AMINOTRANSFERASE,ALT 12 U/L (12-36); ASPARTATE AMNIOTRANSFERASE,AST 30 IU/L (5-25); BILIRUBIN TOTAL 0.2 mg/dL (0.1-1.3); BLOOD UREA NITROGEN,BUN 14 mg/dL (7-18); CARBON DIOXIDE,CO2 24 mmol/L (21-32); CHLORIDE,CL 104 mmol/L (100-110); CREATININE 1.2 mg/dL (0.55-1.02); EST CRCL DRUG DOSING (CG) 29.10 mL/min; ESTIMATED GFR 47 mL/min (>60); GLUCOSE RANDOM 92 mg/dL (80-116); POTASSIUM,K 4.4 mmol/L (3.5-5.3); PROTEIN TOTAL,TP 6.4 g/dL (6.0-8.0); SODIUM,NA 134 mmol/L (135-145)
[2025-06-06 06:39] LABS: BASOPHILS ABSOLUTE AUTO 0.0 x10-3/uL (0.0-0.1); BASOPHILS PERCENT AUTO 0.7 % (0.2-1.5); EOSINOPHILS ABSOLUTE AUTO 0.1 x10-3/uL (0.0-0.8); EOSINOPHILS PERCENT AUTO 1.9 % (0.6-8.1); LYMPHOCYTES ABSOLUTE AUTO 0.9 x10-3/uL (1.0-4.4); LYMPHOCYTES PERCENT AUTO 17.8 % (18.4-52.1); MEAN PLATELET VOLUME 7.8 fL (7.1-12.4); MONOCYTES ABSOLUTE AUTO 0.6 x10-3/uL (0.3-1.0); MONOCYTES PERCENT AUTO 11.8 % (4.4-15.7); NEUTROPHILS ABSOLUTE AUTO 3.3 x10-3/uL (1.5-6.3); NEUTROPHILS PERCENT AUTO 67.8 % (30.8-76.2); PLATELET COUNT,PLT 237 x10(3)uL (151-488); RED BLOOD CELL COUNT 3.05 x10(6)uL (3.60-5.20); RED CELL DISTRIBUTION WIDTH 15.1 % (12.3-16.5); WHITE BLOOD CELL COUNT,WBC 4.9 x10-3/uL (3.0-10.3)
[2025-06-06 06:56] LABS: A/G RATIO 0.6; ALANINE AMINOTRANSFERASE,ALT 17 U/L (12-36); ASPARTATE AMNIOTRANSFERASE,AST 33 IU/L (5-25); BILIRUBIN TOTAL 0.3 mg/dL (0.1-1.3); BLOOD UREA NITROGEN,BUN 13 mg/dL (7-18); CARBON DIOXIDE,CO2 25 mmol/L (21-32); CHLORIDE,CL 103 mmol/L (100-110); CREATININE 1.1 mg/dL (0.55-1.02); EST CRCL DRUG DOSING (CG) 31.74 mL/min; ESTIMATED GFR 52 mL/min (>60); GLUCOSE RANDOM 82 mg/dL (80-116); POTASSIUM,K 4.6 mmol/L (3.5-5.3); PROTEIN TOTAL,TP 6.5 g/dL (6.0-8.0); SODIUM,NA 134 mmol/L (135-145)
[2025-06-06] MEDS: Ondansetron 4 MG Tab.DIS PO PRN (16:56)
[2025-06-07 17:16] LABS: GLUCOSE,URINE NORMAL (NORMAL); OCCULT BLOOD,URINE NEGATIVE (NEGATIVE)
[2025-06-07 17:17] LABS: APPEARANCE,URINE CLEAR (CLEAR)
[2025-06-08 06:48] LABS: BASOPHILS ABSOLUTE AUTO 0.0 x10-3/uL (0.0-0.1); BASOPHILS PERCENT AUTO 0.8 % (0.2-1.5); EOSINOPHILS ABSOLUTE AUTO 0.1 x10-3/uL (0.0-0.8); EOSINOPHILS PERCENT AUTO 1.1 % (0.6-8.1); LYMPHOCYTES ABSOLUTE AUTO 1.0 x10-3/uL (1.0-4.4); LYMPHOCYTES PERCENT AUTO 20.6 % (18.4-52.1); MEAN PLATELET VOLUME 7.7 fL (7.1-12.4); MONOCYTES ABSOLUTE AUTO 0.7 x10-3/uL (0.3-1.0); MONOCYTES PERCENT AUTO 13.9 % (4.4-15.7); NEUTROPHILS ABSOLUTE AUTO 3.0 x10-3/uL (1.5-6.3); NEUTROPHILS PERCENT AUTO 63.6 % (30.8-76.2); PLATELET COUNT,PLT 244 x10(3)uL (151-488); RED BLOOD CELL COUNT 2.83 x10(6)uL (3.60-5.20); RED CELL DISTRIBUTION WIDTH 15.1 % (12.3-16.5); WHITE BLOOD CELL COUNT,WBC 4.7 x10-3/uL (3.0-10.3)
[2025-06-08 06:51] LABS: BLOOD UREA NITROGEN,BUN 12 mg/dL (7-18); CARBON DIOXIDE,CO2 26 mmol/L (21-32); CHLORIDE,CL 103 mmol/L (100-110); CREATININE 1.1 mg/dL (0.55-1.02); EST CRCL DRUG DOSING (CG) 31.74 mL/min; ESTIMATED GFR 52 mL/min (>60); GLUCOSE RANDOM 85 mg/dL (80-116); POTASSIUM,K 4.5 mmol/L (3.5-5.3); SODIUM,NA 134 mmol/L (135-145)
[2025-06-10] MEDS: Prochlorperazine 10 MG/2 ML SDV IM ONE (09:02)
[2025-06-10 09:12] LABS: MEAN PLATELET VOLUME 7.8 fL (7.1-12.4); PLATELET COUNT,PLT 323 x10(3)uL (151-488); RED BLOOD CELL COUNT 3.32 x10(6)uL (3.60-5.20); RED CELL DISTRIBUTION WIDTH 15.0 % (12.3-16.5); WHITE BLOOD CELL COUNT,WBC 8.4 x10-3/uL (3.0-10.3)
[2025-06-10 09:16] LABS: BLOOD UREA NITROGEN,BUN 22 mg/dL (7-18); CARBON DIOXIDE,CO2 32 mmol/L (21-32); CHLORIDE,CL 99 mmol/L (100-110); CREATININE 1.3 mg/dL (0.55-1.02); EST CRCL DRUG DOSING (CG) 26.86 mL/min; ESTIMATED GFR 43 mL/min (>60); GLUCOSE RANDOM 92 mg/dL (80-116); POTASSIUM,K 4.8 mmol/L (3.5-5.3); SODIUM,NA 134 mmol/L (135-145)
[2025-06-10 09:22] LABS: A/G RATIO 0.7; ALANINE AMINOTRANSFERASE,ALT 24 U/L (12-36); ASPARTATE AMNIOTRANSFERASE,AST 34 IU/L (5-25); BILIRUBIN TOTAL 0.2 mg/dL (0.1-1.3); PROTEIN TOTAL,TP 7.2 g/dL (6.0-8.0)
[2025-06-10 09:46] LABS: LYMPHOCYTES PERCENT MAN 8 % (13-37); MONOCYTES PERCENT MAN 5 % (4-12); SEG NEUTROPHILS PERCENT MAN 87 % (46-82)
== END 2025-06-10 10:18 | DRG 372 ==
LOC: FB.ED 16:52 → FB.MS 18:18
PROVIDERS: ADMIT Emergency Medicine; ATTEND Family Medicine
DX: A04.72 Enterocolitis due to Clostridium difficile, not specified as recurrent (principal); E87.1 Hypo-osmolality and hyponatremia; I13.0 Hypertensive heart and chronic kidney disease with heart failure and stage 1 through stage 4 chronic kidney disease, or unspecified chronic kidney disease; I50.9 Heart failure, unspecified; Z66 Do not resuscitate; H54.7 Unspecified visual loss; N18.31 Chronic kidney disease, stage 3a; M19.90 Unspecified osteoarthritis, unspecified site; F41.9 Anxiety disorder, unspecified; E66.9 Obesity, unspecified; F17.200 Nicotine dependence, unspecified, uncomplicated; D63.1 Anemia in chronic kidney disease; E86.0 Dehydration; I48.0 Paroxysmal atrial fibrillation; R60.0 Localized edema; D63.8 Anemia in other chronic diseases classified elsewhere; Z91.041 Radiographic dye allergy status; Z88.8 Allergy status to other drugs, medicaments and biological substances; Z91.013 Allergy to seafood; Z68.29 Body mass index [BMI] 29.0-29.9, adult; Z86.73 Personal history of transient ischemic attack (TIA), and cerebral infarction without residual deficits; Z79.899 Other long term (current) drug therapy; Z79.01 Long term (current) use of anticoagulants; Z90.49 Acquired absence of other specified parts of digestive tract
CPT/HCPCS: 36415; 71045; 74176; 80048; 80053; 81003; 82728; 83540; 83550; 83735; 83880; 84484; 85025; 85045; 87230; 87428-QW; 93005; 93010; 97110-GP; 97161-GP; 97165-GO; 99223; 99231; 99232; 99239; 99285; A9270-GY; J0780; J2270; J2405; J7030; Q0162

== ENCOUNTER 2025-06-18 15:35 | Emergency (ER) | payer MEDICARE, MEDICAID ==
[2025-06-18] MEDS ORDERED: Sodium Chloride 0.9% 10 ML Syringe FLUSH PRN (17:21)
[2025-06-18 17:39] LABS: BASOPHILS ABSOLUTE AUTO 0.1 x10-3/uL (0.0-0.1); BASOPHILS PERCENT AUTO 0.8 % (0.2-1.5); EOSINOPHILS ABSOLUTE AUTO 0.1 x10-3/uL (0.0-0.8); EOSINOPHILS PERCENT AUTO 1.4 % (0.6-8.1); LYMPHOCYTES ABSOLUTE AUTO 1.0 x10-3/uL (1.0-4.4); LYMPHOCYTES PERCENT AUTO 15.5 % (18.4-52.1); MEAN PLATELET VOLUME 8.8 fL (7.1-12.4); MONOCYTES ABSOLUTE AUTO 0.6 x10-3/uL (0.3-1.0); MONOCYTES PERCENT AUTO 9.6 % (4.4-15.7); NEUTROPHILS ABSOLUTE AUTO 4.5 x10-3/uL (1.5-6.3); NEUTROPHILS PERCENT AUTO 72.7 % (30.8-76.2); PLATELET COUNT,PLT 218 x10(3)uL (151-488); RED BLOOD CELL COUNT 3.02 x10(6)uL (3.60-5.20); RED CELL DISTRIBUTION WIDTH 15.3 % (12.3-16.5); WHITE BLOOD CELL COUNT,WBC 6.2 x10-3/uL (3.0-10.3)
[2025-06-18 17:43] LABS: GLUCOSE,URINE NORMAL (NORMAL); OCCULT BLOOD,URINE NEGATIVE (NEGATIVE)
[2025-06-18 17:47] LABS: BLOOD UREA NITROGEN,BUN 27 mg/dL (7-18); CARBON DIOXIDE,CO2 29 mmol/L (21-32); CHLORIDE,CL 105 mmol/L (100-110); CREATININE 1.3 mg/dL (0.55-1.02); ESTIMATED GFR 43 mL/min (>60); GLUCOSE RANDOM 93 mg/dL (80-116); POTASSIUM,K 4.9 mmol/L (3.5-5.3); SODIUM,NA 136 mmol/L (135-145)
[2025-06-18 17:48] LABS: APPEARANCE,URINE CLEAR (CLEAR)
[2025-06-18 17:53] LABS: A/G RATIO 0.7; ALANINE AMINOTRANSFERASE,ALT 48 U/L (12-36); ASPARTATE AMNIOTRANSFERASE,AST 51 IU/L (5-25); BILIRUBIN TOTAL 0.2 mg/dL (0.1-1.3); PROTEIN TOTAL,TP 7.3 g/dL (6.0-8.0)
[2025-06-18 18:02] LABS: PRO B-TYPE NATRIUR PEPT,BNPPRO 3379 pg/mL (<=450)
== END 2025-06-18 20:11 ==
LOC: FB.ED 15:35
DX: I11.0 Hypertensive heart disease with heart failure (principal); I50.9 Heart failure, unspecified; H53.8 Other visual disturbances; I48.91 Unspecified atrial fibrillation; Z90.49 Acquired absence of other specified parts of digestive tract; Z91.013 Allergy to seafood; Z91.041 Radiographic dye allergy status; Z79.899 Other long term (current) drug therapy; Z79.02 Long term (current) use of antithrombotics/antiplatelets; Z79.01 Long term (current) use of anticoagulants; Z87.891 Personal history of nicotine dependence
CPT/HCPCS: 36415; 71045; 80053; 81003; 83605; 83735; 83880; 84484; 85025; 86140; 93005; 93010; 99284; 99285; A9270-GY